=== PATIENT | female | born 1950 | race Caucasian/White ===

== ENCOUNTER 2017-11-25 09:15 | Outpatient (CLI) | payer OTHER, SELFPAY ==
[2017-11-25 11:14] LABS: Abs Immature Grans 0.01 k/cumm (0.0-0.09); Absolute Basophil Count 0.01 k/cumm (0.0-0.2); Absolute Eosinophil Count 0.23 k/cumm (0.0-0.7); Absolute Lymphocyte Count 1.22 k/cumm (1.2-3.4); Absolute Monocyte Count 0.61 k/cumm (0.11-0.7); Absolute Neutrophil Count 4.36 k/cumm (1.2-6.7); Basophils % 0.2; Eosinophils % 3.6; HCT 38.5 % (36.0-46.0); HGB 12.4 g/dL (12.0-15.5); Immature Grans % 0.2; Lymphocytes % 18.9; Mean Corp. HGB Concentration 32.2 g/dL (32.0-36.0); Mean Corpuscular Hemoglobin 31.6 pg (27.0-33.0); Mean Platelet Volume 10.9 fL (8.0-11.0); Monocytes % 9.5; Neutrophils % 67.6; Platelet Count 141 x1000/uL (130-400); RBC 3.93 m/cumm (4.00-5.20); RBC Distribution Width 12.8 % (11.7-14.6); White Blood Cell Count 6.44 k/cumm (4.4-10.8)
[2017-11-25 11:34] LABS: TSH (W/Ref FT4) 3.12 uIU/mL (0.358-3.74)
== END 2017-11-25 09:35 ==
LOC: LBO 09:16 → LOS 10:56
PROVIDERS: PCP Nurse Practitioner Family; Visit Provider Nurse Practitioner Family
DX: D69.6 Thrombocytopenia, unspecified (principal)
CPT/HCPCS: 36415; 84443; 85025

== ENCOUNTER → 2017-11-29 09:16 | Outpatient (BNVA) | payer OTHER, SELFPAY | PROVIDERS: PCP Nurse Practitioner Family; Visit Provider Psychiatry & Neurology Neurology | DX: G40.309 Generalized idiopathic epilepsy and epileptic syndromes, not intractable, without status epilepticus (principal) | CPT/HCPCS: 99213 ==

== ENCOUNTER 2017-12-20 00:49 | Outpatient (CLI) | payer OTHER, SELFPAY ==
--- NOTE | 2017-12-20 09:00 | DI.US_ITS ---
SYMPTOM/DIAGNOSIS: BELLA BENJAMÍN LESION T14.SXXA SOFT TISSUE ULTRASOUND LEFT LOWER EXTREMITY: 12/20/17 The patient reportedly has history of suspected Bella Benjamín lesion with recent ultrasound of 10/13/2017 showing a large fluid collection in the lateral aspect of the thigh. On today's examination, there is interval development of an approximately 10 x 20 cm in diameter heterogeneous region of moderate echogenicity with suspected internal vascular flow on Doppler evaluation. The findings would be atypical for hematoma. The possibility of underlying sarcoma or other soft tissue neoplasm not excluded. CONCLUSION: Interval development of appearance of soft tissue with heterogeneous appearance at site of previously suspected Bella Benjamín lesion with marked interval change in appearance from 10/13/17. Neoplastic disease not excluded. MRI requested for correlation including pre and post contrast imaging of this area.
== END 2017-12-20 01:09 ==
PROVIDERS: PCP Nurse Practitioner Family; Visit Provider Nurse Practitioner Family
DX: S70.12XD Contusion of left thigh, subsequent encounter; T14.8XXD Other injury of unspecified body region, subsequent encounter; R22.42 Localized swelling, mass and lump, left lower limb
CPT/HCPCS: 76881

== ENCOUNTER 2017-12-28 01:01 | Outpatient (CLI) | payer OTHER, SELFPAY ==
--- NOTE | 2017-12-28 07:58 | DI.MRI_ITS ---
SYMPTOMS/DIAGNOSIS: FURTHER EVALUATION OF SITE OF BELLA-BENJAMÍN LESION MRI OF THE LEFT THIGH: Pre and post contrast. Comparison ultrasound is 12/20/17. There is a well- defined crescentic collection extending along the superficial fascia overlying the posterolateral musculature of the left thigh. The collection measures 17 cm in length x 2.4 cm transverse x 7 cm AP. On the T1 weighted images, the collection is hypointense with areas of T2 intensity interlaced more inferiorly consistent with fat. On the T2 weighted images, the collection is predominantly hyperintense with fat signal material at the inferior aspect. The underlying musculature of the thigh is normal in signal and size. There is normal marrow signal. No evidence of an occult fracture is seen. Following contrast administration, there is thin enhancement of the wall of the fluid collection. IMPRESSION: 1. A 17 cm complex fluid collection deep to the subcutaneous tissues, but superficial to the underlying fascia. The collection is most consistent with a complex hematoma with some fat products internally. The findings are consistent with a Bella-Benjamín effusion. 2. No evidence of underlying muscle or osseous abnormality.
[2017-12-28] MEDS: Gadoterate meglumine 20 ML VIAL 9 ML IVP (09:33)
== END 2017-12-28 01:21 ==
PROVIDERS: PCP Nurse Practitioner Family; Visit Provider Nurse Practitioner Family
DX: S70.12XD Contusion of left thigh, subsequent encounter (principal)
CPT/HCPCS: 73720

== ENCOUNTER 2017-12-29 09:35 | Outpatient (CLI) | payer OTHER, SELFPAY ==
--- NOTE | 2017-12-29 09:21 | DI.RAD_ITS ---
SYMPTOM/DIAGNOSIS: F/U S/P REVISION OF RT DEN RIGHT HIP: Comparison is made with 04/16/16. There are again seen post surgical changes of a right total hip replacement. The orthopedic hardware shows no evidence of failure. The bones are intact and normally mineralized. The left hip is unremarkable. The soft tissues have a normal appearance. IMPRESSION: Stable right THR.
== END 2017-12-29 09:55 ==
PROVIDERS: Visit Provider Orthopaedic Surgery
DX: Z96.641 Presence of right artificial hip joint (principal); Z47.1 Aftercare following joint replacement surgery
CPT/HCPCS: 99213; 73502

== ENCOUNTER 2018-01-03 00:23 | Outpatient (CLI) | payer OTHER, SELFPAY ==
--- NOTE | 2018-01-03 08:45 | DI.MAMMO_ITS ---
SYMPTOM/DIAGNOSIS: SCREENING, Z12.31 MAMMOGRAMS: Mammograms were interpreted according to the usual protocol including computer analysis with CAD system, tomosynthesis and C view imaging. The breasts are of moderate density with fairly symmetrical distribution of fibroglandular tissue. No dominant mass or clumped microcalcification is identified in either breast. Biopsy clip is noted in the central portion of the left breast. Current examination is compared with previous examinations including 12/2016 and there has been no gross interval change in appearance in comparison with the previous studies. CONCLUSION: No specific evidence of malignancy at this time. Routine screening examinations are suggested at yearly intervals in this age group according to the ACS/ACR guidelines. Category 1. Breast density, category B. MQSA ASSESSMENT OF FINDINGS: Negative. Category 1. Patient will receive a letter notifying them of these results. BI-RADS category B. There are scattered areas of fibroglandular density.
== END 2018-01-03 00:43 ==
PROVIDERS: PCP Nurse Practitioner Family; Visit Provider Nurse Practitioner Family
DX: Z12.31 Encounter for screening mammogram for malignant neoplasm of breast (principal)
CPT/HCPCS: 77063; 77067

== ENCOUNTER 2018-09-30 02:14 | Outpatient (CLI) | payer OTHER, SELFPAY ==
[2018-09-29 13:55] LABS: HCT 39.4 % (36.0-46.0); HGB 12.9 g/dL (12.0-15.5); Mean Corp. HGB Concentration 32.7 g/dL (32.0-36.0); Mean Corpuscular Hemoglobin 31.5 pg (27.0-33.0); Mean Corpuscular Volume 96.3 fL (80-95); Mean Platelet Volume 10.3 fL (8.0-11.0); Platelet Count 133 x1000/uL (130-400); RBC 4.09 m/cumm (4.00-5.20); RBC Distribution Width 12.5 % (11.7-14.6); White Blood Cell Count 5.22 k/cumm (4.4-10.8)
[2018-09-29 14:05] LABS: Hemoglobin A1C 5.8 % (4.5-6.2)
[2018-09-29 16:15] LABS: Anion Gap 9.2 mmol/L (3-11); BUN 21 mg/dL (7-18); CO2 28.8 mmol/L (21.0-32.0); Calcium 9.6 mg/dL (8.5-10.1); Chloride 108 mmol/L (98-107); Estimated GFR 44.68 (mL/min/1.73m2); Glucose 101 mg/dL (70-100); Potassium 4.7 mmol/L (3.5-5.1); Sodium 146 mmol/L (136-145)
== END 2018-09-30 02:34 ==
PROVIDERS: PCP Nurse Practitioner Family; Visit Provider Nurse Practitioner Family
DX: I25.10 Atherosclerotic heart disease of native coronary artery without angina pectoris (principal); N18.9 Chronic kidney disease, unspecified; R73.09 Other abnormal glucose
CPT/HCPCS: 36415; 80048; 85027; 83036

== ENCOUNTER → 2018-11-28 08:19 | Outpatient (BNVA) | payer OTHER, SELFPAY | PROVIDERS: PCP Nurse Practitioner Family; Visit Provider Psychiatry & Neurology Neurology | DX: G40.309 Generalized idiopathic epilepsy and epileptic syndromes, not intractable, without status epilepticus (principal) | CPT/HCPCS: 99213 ==

== ENCOUNTER 2019-03-28 08:59 | Emergency (ER) | payer OTHER, SELFPAY ==
[2019-03-28 09:03] VITALS: BP 125/66; PULSE 79; RESP 18; TEMP 37.2; O2SAT 96
--- NOTE | 2019-03-28 09:16 | W.ED.GENAD ---
Discharge Plan Disposition Patient Disposition: HOME Condition: Stable Discharge Details Chief Complaint: Orthopedic Clinical Impression: Left ankle sprain Primary Care Provider: Lorelei Ferguson ED Provider: Gonzales Denise Home Meds and New Rx's Prescriptions: Continued multivitamin [Daily Multi-Vitamin] tablet 1 tab PO DAILY RF: 0 loratadine 10 mg capsule 10 mg PO DAILY RF: 0 Shingrix (PF) 50 mcg/0.5 mL suspension for reconstitution 0.5 ml IM ONCE Qty: 1 RF: 0 aspirin [Aspir-81] 81 MG tablet,delayed release (DR/EC) 81 mg PO HS RF: 0 atorvastatin 40 mg tablet 40 mg PO DAILY Qty: 90 RF: 4 bisoprolol fumarate 5 mg tablet 5 mg PO DAILY Qty: 90 RF: 4 lamotrigine 100 mg tablet 100 mg PO BID Qty: 180 RF: 4 lisinopril 2.5 mg tablet 2.5 mg PO DAILY Qty: 90 RF: 4 sertraline 100 mg tablet 100 mg PO DAILY Qty: 90 RF: 4 omeprazole 20 mg capsule,delayed release(DR/EC) 20 mg PO DAILY Qty: 90 RF: 4 Discharge Instructions Instructions: Ankle Sprain (ED) Additional Instructions: Elevate to reduce pain and swelling. Apply ice. May remove walking boot for bedtime, while at rest, for bathing. Follow-up with regular doctor if not improving in 1 week's time. Continue regular medications. Medical Decision Making 69-year-old female who fell while entering her home yesterday afternoon. She had forced deviation of the left ankle. She did not injure herself in any other way. Her exam is concerning for underlying sprain versus bony injury. Ice was placed and she was referred for x-rays including left hip, tib-fib, and ankle. No acute bony injury appreciated. Consistent with strain, soft tissue edema. Placed in walking boot, instructed on conservative management at home and expected course of resolution. She is stable for discharge home. HPI General Mode of arrival: wheelchair. Date/Time Provider Initiated Documentation: 03/28/19 09:01. Limitations to Documentation: no limitations. Information obtained by: patient and family. History of Present Illness 69 year old F presents to the emergency department with the chief complaint of Left ankle pain and swelling, injury yesterday, described as moderate, Quality is described as dull, and is localized to the left and lower extremity. Patient reports no radiation. Patient started experiencing this hour(s) and it has been constant. Rest improves symptom(s), Movement worsens symptoms . Patient notes no other symptoms.. Patient did receive the following treatments prior to arrival, other (Tylenol) Related Data Home Medications Medication Instructions Recorded Confirmed aspirin [Aspir-81] 81 mg PO HS tab 02/01/15 03/28/19 loratadine 10 mg capsule 10 mg PO DAILY 11/24/17 03/28/19 multivitamin 1 tab PO DAILY 11/24/17 03/28/19 varicella-zoster gE-AS01B (PF) 50 0.5 ml IM ONCE #1 each 10/06/18 03/28/19 mcg/0.5 mL IM susp, kit atorvastatin 40 mg tablet 40 mg PO DAILY #90 tab 12/14/18 03/28/19 bisoprolol fumarate 5 mg tablet 5 mg PO DAILY #90 tab 12/14/18 03/28/19 lamotrigine 100 mg tablet 100 mg PO BID #180 tab 12/14/18 03/28/19 lisinopril 2.5 mg tablet 2.5 mg PO DAILY #90 tab 12/14/18 03/28/19 omeprazole 20 mg capsule,delayed 20 mg PO DAILY #90 cap 12/14/18 03/28/19 release sertraline 100 mg tablet 100 mg PO DAILY #90 tab 12/14/18 03/28/19 Previous Rx's Medication Instructions Recorded varicella-zoster gE-AS01B (PF) 50 0.5 ml IM ONCE #1 each 10/06/18 mcg/0.5 mL IM susp, kit atorvastatin 40 mg tablet 40 mg PO DAILY #90 tab 12/14/18 bisoprolol fumarate 5 mg tablet 5 mg PO DAILY #90 tab 12/14/18 lamotrigine 100 mg tablet 100 mg PO BID #180 tab 12/14/18 lisinopril 2.5 mg tablet 2.5 mg PO DAILY #90 tab 12/14/18 omeprazole 20 mg capsule,delayed 20 mg PO DAILY #90 cap 12/14/18 release sertraline 100 mg tablet 100 mg PO DAILY #90 tab 12/14/18 Allergies Allergy/AdvReac Type Severity Reaction Status Date / Time Penicillins Allergy Severe Unverified 03/28/19 09:08 Sulfa (Sulfonamide Allergy Severe Unverified 03/28/19 09:08 Antibiotics) IODINE DYES Allergy Severe Uncoded 03/28/19 09:08 General Stated Complaint: Orthopedic MARION: 4 Review of Systems Narrative: Denies numbness or tingling. No other injury. Improve minimally with Tylenol. She has been gently able to weight-bear but it causes pain. 6 systems reviewed and otherwise negative [facility] Medical History Allergic rhinitis (Chronic) Atopic dermatitis (Inactive) Chronic kidney disease (CKD) (Chronic) Coronary artery disease, non-occlusive (Chronic) Atretic LAD. 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 Prediabetes (Chronic) Tubular adenoma of colon (Chronic) Colonoscopy q5yrs; due in 2020 Surgical History History of arthroplasty of right shoulder (Acute) History of revision of total replacement of right hip joint (Acute 01/03/16) S/P appendectomy (Acute) S/P colonoscopy (Acute 11/18/15) S/P ear surgery (Acute 01/12/13) Left middle ear paraganglioma removal at [facility] [place] S/P laparoscopic hysterectomy (Acute ~1988) S/P left oophorectomy (Acute ~1988) S/P right oophorectomy (Acute ~1969) Status post total hip replacement, right (Acute 12/30/15) Social History (Updated 11/28/18 @ 08:32 by JOYCE Abraham Smoking/Tobacco Use Status: Former Tobacco Use Quit Date: 03/22/89 Pack-years: 23 Alcohol Intake: current Alcohol Intake frequency: a few times a month Drug use: Never Substance use type: does not use Adopted: No Household members: other Details: 2 current occupation: HOUSEWIFE Pets and animals: No What type of physical activity do you participate in: none Shawanda/Protestant: Evangelical Special shawanda needs: No Do you feel safe at home: Yes Do you feel safe in your relationship?: Yes Additional Social history: does not drive Female Reproductive History Menstrual Menopause type: surgical History History 5 Para 5 Hx # Term Pregnancies Multiple births Hx # Pregnancies Ectopic pregnancies AB induced Hx Number of Living Children 5 AB spontaneous Exam Narrative Exam Narrative: GEN: awake, alert, oriented 3. Pleasant, well groomed, interactive. HEAD: Normocephalic, atraumatic ENT: Mucous membranes moist, oropharynx unremarkable, External ear exam unremarkable EYES: PERRL, EOMI NECK: Full ROM, no CONSTANTINO, no menigismus CHEST/RESP: Nontender, clear to auscultation bilateral, no wheeze/rhonchi/rales CARDIOVASCULAR: RRR, no murmur, rub ravi. 2+ Rad pulse bilateral EXT: Intact bilateral ROM, the left lower extremity has generalized swelling around the bimalleolar area with anterolateral ecchymosis. The left hip is minimally tender to palpation. No pain with internal and external rotation. Sensation is intact throughout. Neuro: Grossly normal neurologic exam, conversant, interactive. Psych: Speech fluent, thoughts congruent, affect normal Course Vital Signs Vital signs: Vital Signs Temperature 37.2 C 03/28/19 09:03 Pulse 79 03/28/19 09:03 Respiratory Rate 18 03/28/19 09:03 Blood Pressure 125/66 03/28/19 09:03 Pulse Oximetry 96 03/28/19 09:03 Temperature 37.2 C 03/28/19 09:03 Temperature Source Temporal Artery Scan 03/28/19 09:03 Pulse 79 03/28/19 09:03 Respiratory Rate 18 03/28/19 09:03 Respiratory Effort Non-Labored 03/28/19 09:07 Blood Pressure 125/66 03/28/19 09:03 Blood Pressure Position Supine 03/28/19 09:03 Pulse Oximetry 96 03/28/19 09:03 Oxygen Delivery Method Room Air 03/28/19 09:03 Oxygen Flow Rate 0 03/28/19 09:03 Pain Level 10 03/28/19 09:09
--- NOTE | 2019-03-28 09:23 | DI.RAD_ITS ---
EXAM: XR ANKLE LT COMPLETE INDICATION: fall, Lat > medial pain. COMPARISON: No exams were available for comparison TECHNIQUE: 2D digital imaging was performed. FINDINGS: There is marked soft tissue swelling around the malleoli. No fracture or ankle mortise widening is s een. No talar dome defect is identified. IMPRESSION: Soft tissue swelling.
--- NOTE | 2019-03-28 09:26 | DI.RAD_ITS ---
EXAM: XR TIB/FIB LT INDICATION: distal tibia pain. COMPARISON: XR ANKLE LT COMPLETE from 03/28/2019 TECHNIQUE: 2D digital imaging was performed. FINDINGS: No fracture is identified. The knee and ankle are intact as visualized. IMPRESSION: No acute abnormality.
--- NOTE | 2019-03-28 09:30 | DI.RAD_ITS ---
EXAM: XR HIP LT COMPLETE AP PELVIS INDICATION: L hip pain after fall. COMPARISON: No exams were available for comparison TECHNIQUE: 2D digital imaging was performed. FINDINGS: There is no evidence of acute fracture or dislocation. A right total hip prosthesis appears unchanged . IMPRESSION: No acute abnormality.
== END 2019-03-28 10:02 | disposition home or self-care (01) ==
LOC: ER 10:01
PROVIDERS: Emergency Provider Emergency Medicine; PCP Nurse Practitioner Family
DX: S93.402A Sprain of unspecified ligament of left ankle, initial encounter (principal); W19.XXXA Unspecified fall, initial encounter; X50.9XXA Other and unspecified overexertion or strenuous movements or postures, initial encounter; I12.9 Hypertensive chronic kidney disease with stage 1 through stage 4 chronic kidney disease, or unspecified chronic kidney disease; N18.9 Chronic kidney disease, unspecified
CPT/HCPCS: 29515; 99284; 73502; 73590; 73610; L4361

== ENCOUNTER 2019-09-25 12:20 | Outpatient (REF) | payer OTHER, SELFPAY ==
[2019-09-25 13:12] LABS: COMMENT (LAB VIEW ONLY) 230.38 mg/dL
[2019-09-25 14:35] LABS: Anion Gap 8.1 mmol/L (3-11); BUN 20 mg/dL (7-18); CO2 28.9 mmol/L (21.0-32.0); CREATININE 1.07 mg/dL (0.55-1.02); Calcium 9.5 mg/dL (8.5-10.1); Calculated LDL 55 mg/dL (<100); Chloride 106 mmol/L (98-107); Cholesterol 115 mg/dL (<200); Estimated GFR 50.84 (mL/min/1.73m2); Glucose 105 mg/dL (74-106); HDL Cholesterol 46 mg/dL (40-60); Potassium 4.4 mmol/L (3.5-5.1); Sodium 143 mmol/L (136-145); Triglyceride 74 mg/dL (<150)
[2019-09-25 14:37] LABS: Hemoglobin A1C 5.4 % (3.8-5.6)
== END 2019-09-25 12:40 ==
LOC: LBN 12:20
PROVIDERS: PCP Nurse Practitioner Family; Visit Provider Nurse Practitioner Family
DX: N18.9 Chronic kidney disease, unspecified (principal); I25.10 Atherosclerotic heart disease of native coronary artery without angina pectoris; R73.03 Prediabetes
CPT/HCPCS: 80048; 80061; 82043; 82570; 83036

== ENCOUNTER → 2019-10-20 12:53 | Outpatient (BNVA) | payer OTHER, SELFPAY | PROVIDERS: PCP Nurse Practitioner Family; Referring Provider Nurse Practitioner Family; Visit Provider Internal Medicine Cardiovascular Disease | DX: I25.10 Atherosclerotic heart disease of native coronary artery without angina pectoris; E78.5 Hyperlipidemia, unspecified; I12.9 Hypertensive chronic kidney disease with stage 1 through stage 4 chronic kidney disease, or unspecified chronic kidney disease; N18.9 Chronic kidney disease, unspecified | CPT/HCPCS: 99203; 99214 ==

== ENCOUNTER 2019-11-15 01:08 | Outpatient (CLI) | payer OTHER, SELFPAY ==
--- NOTE | 2019-11-15 | DI.MAMMO_ITS ---
EXAM: MG MAMMO SCREENING CLINICAL HISTORY: SCREENING, Z12.39 TECHNIQUE: Mammograms were interpreted according to the usual protocol including computer analysis w [place] CAD system, tomosynthesis and C-view imaging. COMPARISON: FINDINGS: The breasts are of moderate density with fairly symmetrical distribution of fibroglandular tissue. N o dominant mass or clumped microcalcification is identified in either breast. The current examinatio n is compared with prior examinations including December 2017 and there has been no gross interval romeo nge in appearance in comparison with the previous studies. IMPRESSION: No specific evidence of malignancy at this time. Routine screening examinations are suggested at yea rly intervals in this age group according to the ACS ACR guidelines. Category: BI-RADS Cat 1 - Negative Breast Density - Category B - Scattered areas of fibroglandular density
--- NOTE | 2019-11-15 07:45 | DI.DEXA_ITS ---
EXAM: XR DEXA BONE DENSITY W/WO FARSHAD CLINICAL HISTORY: Osteopenia,m85.80 TECHNIQUE: COMPARISON: CR XR HIP LT COMPLETE AP PELVIS from 03/28/2019 MG MG MAMMO SCREENING from 11/15/2019 FINDINGS: DEXA scan was performed according to the usual protocol. Findings for left hip scanning are T-score -1.5 with left femoral neck T-score -2.7. Prior scan of May 2015 left hip T-score -1 point. Lumbar spine scanning shows T-score -1.5, prior study of 2015 showed T-score -1.2. Left forearm scanning shows T-score -1.1, prior study showed T-score -1.0. IMPRESSION: Findings consistent with osteoporosis according to the WHO criteria. Mild anterior wedging of upper thoracic vertebral bodies noted on the lateral vertebral scanogram. RADIATION DOSE DELIVERED: Total DLP
== END 2019-11-15 01:28 ==
PROVIDERS: PCP Nurse Practitioner Family; Visit Provider Nurse Practitioner Family
DX: M85.832 Other specified disorders of bone density and structure, left forearm (principal); M85.88 Other specified disorders of bone density and structure, other site; Z12.31 Encounter for screening mammogram for malignant neoplasm of breast
CPT/HCPCS: 77063; 77067; 77080

== ENCOUNTER → 2019-11-28 10:14 | Outpatient (BNVA) | payer OTHER, SELFPAY | PROVIDERS: PCP Nurse Practitioner Family; Visit Provider Psychiatry & Neurology Neurology | DX: G40.309 Generalized idiopathic epilepsy and epileptic syndromes, not intractable, without status epilepticus (principal); R41.3 Other amnesia; I25.2 Old myocardial infarction; G47.33 Obstructive sleep apnea (adult) (pediatric); I12.9 Hypertensive chronic kidney disease with stage 1 through stage 4 chronic kidney disease, or unspecified chronic kidney disease; N18.9 Chronic kidney disease, unspecified | CPT/HCPCS: 99214 ==

== ENCOUNTER 2019-12-07 04:14 | Outpatient (CLI) | payer OTHER, SELFPAY ==
[2019-12-07 08:23] LABS: Vitamin D 25 Total 40.9 ng/ml (30-100)
== END 2019-12-07 04:34 ==
PROVIDERS: PCP Nurse Practitioner Family; Visit Provider Nurse Practitioner Family
DX: M81.0 Age-related osteoporosis without current pathological fracture (principal)
CPT/HCPCS: 36415; 82306

== ENCOUNTER → 2020-07-19 12:27 | Outpatient (BNVA) | payer OTHER, SELFPAY | PROVIDERS: PCP Nurse Practitioner Family; Referring Provider Nurse Practitioner Family; Visit Provider Internal Medicine Cardiovascular Disease | DX: I25.10 Atherosclerotic heart disease of native coronary artery without angina pectoris (principal); I10 Essential (primary) hypertension; E78.5 Hyperlipidemia, unspecified | CPT/HCPCS: 99212; 99213 ==

== ENCOUNTER 2020-10-11 03:07 | Outpatient (CLI) | payer OTHER, SELFPAY ==
[2020-10-11 09:32] LABS: Anion Gap 10.1 mmol/L (3-11); BUN 18 mg/dL (7-18); CO2 28.9 mmol/L (21.0-32.0); CREATININE 1.2 mg/dL (0.55-1.02); Calcium 9.3 mg/dL (8.5-10.1); Calculated LDL 54 mg/dL (<100); Chloride 108 mmol/L (98-107); Cholesterol 118 mg/dL (<200); Estimated GFR 44.41 (mL/min/1.73m2); Glucose 98 mg/dL (74-106); HDL Cholesterol 49 mg/dL (40-60); Potassium 4.7 mmol/L (3.5-5.1); Sodium 147 mmol/L (136-145); Triglyceride 76 mg/dL (<150)
== END 2020-10-11 03:08 | disposition home or self-care (01) ==
LOC: LBO 03:08
PROVIDERS: PCP Nurse Practitioner Family; Visit Provider Nurse Practitioner Family
DX: I25.10 Atherosclerotic heart disease of native coronary artery without angina pectoris (principal)
CPT/HCPCS: 36415; 80048; 80061

== ENCOUNTER → 2020-11-26 10:46 | Outpatient (BNVA) | payer OTHER, SELFPAY | PROVIDERS: PCP Nurse Practitioner Family; Referring Provider Nurse Practitioner Family; Visit Provider Psychiatry & Neurology Neurology | DX: G40.309 Generalized idiopathic epilepsy and epileptic syndromes, not intractable, without status epilepticus (principal); R41.3 Other amnesia | CPT/HCPCS: 99213 ==

== ENCOUNTER → 2021-07-04 11:18 | Outpatient (BNVA) | payer MEDICARE, SELFPAY | PROVIDERS: PCP Nurse Practitioner Family; Referring Provider Nurse Practitioner Family; Visit Provider Physical Therapy Assistant | DX: Z12.11 Encounter for screening for malignant neoplasm of colon (principal) ==

== ENCOUNTER 2021-07-18 09:18 | Day surgery (SDC) | payer MEDICARE, SELFPAY ==
--- NOTE | 2021-07-17 14:19 | W.COLOREPORT ---
Colonoscopy Report Date of procedure: 07/18/21 Pre-op diagnosis general: Adenomatous polyps Post-op diagnosis procedure note: other (polyps x2 and diverticula (minor) ) Surgeon: Dee Min Anesthesia Type: General:No Airway Estimated blood loss (mL): 1 Pathology: other Complications: None Disposition: same day Prep: Miralax/Dulcolax Retraction Time: 10 Procedure Description: After informed consent was obtained the patient was taken to the procedure room and placed in a left decubitous position. Monitors were applied and a time out was done. The patients name, date of , procedure, allergies to medications and metal in their body was reviewed. The patient was then sedated. Once sedated and comfortable a rectal exam was done. External exam was normal. Internal exam revealed a normal sphincter tone and no palpable masses. The scope was then introduced and retrofelexed. Grade I internal hemorrhoids were identified. The scope was then advanced to the cecum withoutdifficulty. The TI and appendiceal orifice were identified. The prep was BB PS 3 in all segments for a total of 9.. The scope was then slowly retracted over 10mins. she has x2 small, flat, 5 mm polyps. Both were removed with a cold biting forceps. One was in the cecum and the other was at 40 cm. All specimens are retrieved and no bleeding is noted. She has minor diverticula confined in the sigmoid colon with no signs of active bleeding or infection. There are no AVMs. The mucosa appears pink and healthy with a normal vascular pattern. The scope was removed and the patient was woken up and taken back to Same day surgery in stable condition. The patient tolerated the procedure well and there were no immediate complications. Follow up: The patient should follow up in 7 years unless they develop changes in bowel habits or other new gastrointestinal complaints. Depending on pathology, this is most likely her last colonoscopy.
--- NOTE | 2021-07-17 14:20 | PDOC.DSDIS_ITS ---
Discharge Plan Disposition Patient Disposition: HOME Condition: Good Discharge Details Reason For Visit: Colon scope Attending Provider: Dee Min Primary Care Provider: Lorelei Ferguson Meds and New Rx's Prescriptions: Continued multivitamin [Daily Multi-Vitamin] tablet 1 tab PO DAILY 0RF lamotrigine 100 mg tablet 100 mg PO BID Qty: 180 3RF calcium carbonate [Calcium 600] 600 mg calcium (1,500 mg) tablet 600 mg PO DAILY 0RF aspirin 81 mg tablet,delayed release (DR/EC) 81 mg PO DAILY 0RF mometasone 0.1 % ointment 1 applic topical .qod Qty: 15 1RF Rx Instructions: apply to both ear canals with fingertip every other day atorvastatin [Lipitor] 40 mg tablet 40 mg PO DAILY Qty: 90 4RF alendronate [Fosamax] 70 mg tablet 70 mg PO QWEEK Qty: 15 4RF Rx Instructions: Take 1 tablet once a week with water 30-60min before other meds or food, stay upright for >30 min after bisoprolol fumarate 5 mg tablet 5 mg PO DAILY Qty: 90 4RF lisinopril 2.5 mg tablet 2.5 mg PO DAILY Qty: 90 4RF omeprazole 20 mg tablet,delayed release (DR/EC) 20 mg PO DAILY Qty: 90 4RF Discontinued polyethylene glycol 3350 17 gram/dose powder 238 g PO ONCE Qty: 238 0RF Rx Instructions: take per colonoscopy instructions bisacodyl [Dulcolax (bisacodyl)] 5 mg tablet,delayed release (DR/EC) 5 mg PO ONCE Qty: 4 0RF Rx Instructions: take per colonoscopy instructions Discharge Instructions Additional Instructions: DSU Colonoscopy Post- Op Instructions Instructions for Everyone who is given Anesthesia: For your safety, please do the following for the next twenty-four (24) hours: *Do Not operate a motor vehicle (car, truck, motorcycle, etc.) *Do Not drink alcoholic beverages or use any recreational drugs for the first 24 hours or while taking pain medications. The medications in your body may have a reaction that can be dangerous. *Do Not make any important decisions or sign any important papers. Findings: polyps x2 and minor diverticula Follow up: repeat in 7 yrs if still healthy for anesthesia. 1. No lifting over 20 pounds or strenuous activity for the first 24 hours after your procedure. After 24 hours there are no restrictions on your activity but you may feel fatigued for a few days. 2. After you arrive home you may have a light meal and return to your normal diet as you can tolerate it without feeling sick to your stomach. 3. You may have a bloated, gaseous feeling in your belly (abdomen) after a colonoscopy. Passing gas and belching will help. Walking or lying down on your l eft side with your knees flexed may relieve the discomfort. Call the office at [phone] (Office) or [phone] (Hospital) right away if you notice any of the following: a.Vomiting of blood or ?coffee ground stools?. b.Rectal bleeding 1Tbsp, blood clots or continuous bleeding. c.Severe belly (abdominal) pain. d.A hard distended belly (abdomen) and an inability to pass gas. 4. Please don?t expect to have a normal BM (bowel movement) for 2-3 days after your procedure. 5. If there are questions regarding the findings of your procedure, please contact your doctor 6. If you are unable to contact your doctor with a problem, contact the hospital at [phone]. 7. Continue all your regular medications unless directed otherwise. I understand the above instructions and have no questions. Signature of Patient or Adult Escort Name of Responsible Adult Escort Signature of Nurse Date/Time Activity:: See above Diet:: See above Discharge Orders Discharge Orders: Discharge Order (Routine); Ordered 07/17/21 Ordered By: Dee Min
--- NOTE | 2021-07-18 09:39 | W.ANESPRE ---
General Info Date of Service Date Performed: 07/18/21 Height: 5 ft 2 in Weight: 83.461 kg Body Mass Index (BMI): 33.6 Surgical Procedure: Operation Date: 07/18/21 09:50 Proposed Procedure Side Surgeon lazaro Min, Meds Allergies and Home Medications Allergies Allergy/AdvReac Type Severity Reaction Status Date / Time Penicillins Allergy Severe Anaphylaxis Verified 07/18/21 09:41 Sulfa (Sulfonamide Allergy Severe Anaphylaxis Verified 07/18/21 09:41 Antibiotics) IODINE DYES Allergy Severe Anaphylaxis Uncoded 07/18/21 09:35 Home Medication Medication Instructions Recorded multivitamin (Daily Multi-Vitamin) 1 tab PO DAILY 11/24/17 calcium carbonate 600 mg calcium 600 mg PO DAILY 07/19/20 (1,500 mg) tablet (Calcium) lamotrigine 100 mg tablet 100 mg PO BID #180 tab 10/25/20 aspirin 81 mg tablet,delayed 81 mg PO DAILY 12/03/20 release alendronate 70 mg tablet (Fosamax) 70 mg PO QWEEK #15 tab 03/12/21 atorvastatin 40 mg tablet (Lipitor) 40 mg PO DAILY #90 tab 03/12/21 bisoprolol fumarate 5 mg tablet 5 mg PO DAILY #90 tab 03/12/21 lisinopril 2.5 mg tablet 2.5 mg PO DAILY #90 tab 03/12/21 mometasone 0.1 % topical ointment 1 applic TOPICAL .qod #15 g 05/29/21 omeprazole 20 mg tablet,delayed 20 mg PO DAILY #90 tab 06/26/21 release Current Visit Medications: Current Medications Generic Name Dose Route Start Last Admin Trade Name Jabier PRN Reason Stop Dose Admin Hyoscyamine Sulfate 0.125 mg 07/18/21 06:00 Hyoscyamine 0.125 Mg Sl/Oral/Chew SL 07/18/21 16:00 DIRECTED PRN Ringer's Solution 1,000 mls @ 80 mls/hr 07/18/21 06:00 IV 07/19/21 23:59 INFUSION BABAR IV Miscellaneous Supplies 1 each 07/18/21 06:00 Iv Access IV 07/19/21 23:59 DIRECTED BABAR Ondansetron HCl 4 mg 07/18/21 06:00 Ondansetron 4 Mg/2 Ml Vial IVP 07/18/21 16:00 Q4H PRN PRN Nausea / Vomiting Sodium Chloride 0 ml 07/18/21 06:00 Normal Saline Flush 10 Ml Syr IV 07/19/21 23:59 PRN PRN Sodium Chloride 0 ml 07/18/21 06:00 Normal Saline 10 Ml Vial IJ 07/19/21 23:59 DIRECTED PRN Sterile Water 0 ml 07/18/21 06:00 Water,Injection,Sterile 10 Ml Vial IJ 07/19/21 23:59 DIRECTED PRN PFSH Active Problems Active Problems: Problem Status Onset Code Chronic kidney disease (CKD) N18.9 Coronary artery disease, non-occlusive I25.10 Hyperlipidemia E78.5 Obstructive sleep apnea G47.33 Tubular adenoma of colon D12.6 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 Allergic rhinitis J30.9 GERD (gastroesophageal reflux disease) K21.9 Depressive disorder F32.9 Osteoporosis M81.0 Memory loss R41.3 Chronic suppurative otitis media of left ear H66.3X2 Chronic eczematoid otitis externa of both ears H60.8X3 Chronic bacterial otitis externa of left ear H60.392 Sensorineural hearing loss, bilateral H90.3 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 Medical History Medical History Former cigarette smoker 23pack-yr hx Migraine headache without aura (02/01/15) [place] lesion (~09/2017) To left lateral thigh Non-ischemic cardiomyopathy NSTEMI (non-ST elevated myocardial infarction) (~2011) 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Prediabetes Surgical History Surgical History History of arthroplasty of right shoulder History of left mastoidectomy With paraganglioma excision, 2012, at [facility] [place] History of revision of total replacement of right hip joint (01/03/16) History of tonsillectomy and adenoidectomy S/P appendectomy S/P colonoscopy (11/18/15) S/P laparoscopic hysterectomy (~1988) S/P left oophorectomy (~1988) S/P right oophorectomy (~1969) Status post total hip replacement, 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) Tobacco Smoking/Tobacco Use Status: Former Tobacco Use Passive smoking exposure: Yes Alcohol Alcohol Intake: never Substance Use Substance use: Never Prental History History 5 Para 5 Hx # Term Pregnancies Multiple births Hx # Pregnancies Ectopic pregnancies AB induced Hx Number of Living Children 5 AB spontaneous Vital Signs and Lab Results Lab Results Blood Type / Crossmatch: No Data to Display Complete Blood Count: No Data to Display Complete Metabolic Panel: No Data to Display Liver Function Panel: No Data to Display Coagulation Panel: No Data to Display Cardiac Panel: No Data to Display Arterial Blood Gas: No Data to Display Venous Blood Gas: No Data to Display Pancreas Panel: No Data to Display Thyroid Panel: No Data to Display Infectious Disease: No Data to Display Blood Cultures: No Data to Display Toxicology Panel: No Data to Display Anesthesia Assessment and Plan Anesthesia History Personal History: No History of Anesthesia Complications Family History: No Family History of Anesthesia Complications Exercise Tolerance Exercise Tolerance: Metabolic Equivalents<4 Pertinent Negatives Pertinent Negatives: No Symptoms of GERD Cardiac & Pulmonary Exam Cardiac Exam: Normal S1/S2 Heart Sounds Pulmonary Exam: Clear Bilateral Breath Sounds Implantable Cardiac Device Does patient have a Pacemaker or an ICD?: No Airway Exam Known Difficult Airway: No Mallampati Class: 2 Mouth Opening: Normal (> 3cm) Thyromental Distance: Greater than 3 cm Neck Range of Motion: Full ROM Neck Circumference: Normal Teeth Condition: Removable Dentures/Plates Upper ASA Classification ASA Score: ASA 2 Emergency Case?: No NPO Status NPO Status: NPO Clears >2 hours, Solids >8 hours Anesthesia Plan Resuscitation Status: Full Code Anesthesia Technique: General Anesthesia Airway Planned: Natural Airway Monitors Used: Standard Monitors
[2021-07-18 09:46] VITALS: BP 135/83; PULSE 62; RESP 18; TEMP 36.5; O2SAT 97
[2021-07-18 10:15] VITALS: BMI 33.6
[2021-07-18] MEDS: Lactated Ringers 1,000 ML 80 ML IV (10:20)
--- NOTE | 2021-07-18 10:36 | BOWEL_PTH ---
PATIENT: Dorothy Payne LOC: [facility] U#:[id number] AGE/SX: 71/F ROOM: RE07/18/[address]: Dee Min : 1950 BED: DIS: 07/18/2021 SPEC #: [id number] RECD: 07/18/21 12:45 STATUS: JOHN REQ #: [id number] MANDO: 07/18/21 10:[address]: Dee Min DEPT: Surgical Specimen RECD BY: Mady Naranjo ENTERED: 07/18/21 12:46 SP TYPE: Bowel OTHR DR: Lorelei Ferguson, TRUDY Tissues: 1 - BIOPSY BOWEL 2 - BIOPSY BOWEL Procedures: GROSS AND MICRO LEVEL 4 Comments: [id number]
[2021-07-18 10:55] VITALS: BP 109/61; PULSE 64; RESP 16; TEMP 36.2; O2SAT 98
--- NOTE | 2021-07-18 11:08 | W.ANESPOSTOP ---
Postoperative Evaluation Date, Time and Location Date Performed: 07/18/21 Time Performed: 11:08 Patient Location: Day Surgery Unit Vital Signs Most Recent Imported Vital Signs: Most Recent Vital Signs Temp Pulse Resp BP Pulse Ox 36.2 C L 64 16 109/61 98 07/18/21 10:55 07/18/21 10:55 07/18/21 10:55 07/18/21 10:55 07/18/21 10:55 Pain Score Most Recent Pain Score: Most Recent Pain Score Pain Level 0 07/18/21 10:55 Assessment Mental Status: Awake (Alert & Oriented to Patient Baseline) Airway and Respiratory Function: Patent airway with normal (patient baseline) respiratory exam Cardiovascular Function: Hemodynamically Stable Hydration Status: Adequately Hydrated Nausea & Vomiting: No Nausea or Vomiting Pain: Pt. Denies Any Pain Peripheral Nerve Block: Patient did not receive a nerve block
[2021-07-18 11:29] VITALS: BP 119/61; PULSE 59; RESP 18; TEMP 36.2; O2SAT 98
== END 2021-07-18 11:50 | disposition home or self-care (01) ==
LOC: SUR 09:18
PROVIDERS: PCP Nurse Practitioner Family; Visit Provider Surgery
PROC: 0DJD8ZZ Inspection of Lower Intestinal Tract, Via Natural or Artificial Opening Endoscopic (ICD-10-PCS; CPT 45378; principal; 2021-07-18 09:45)
DX: Z12.11 Encounter for screening for malignant neoplasm of colon (principal); K63.5 Polyp of colon; Z87.891 Personal history of nicotine dependence; R73.03 Prediabetes; K21.9 Gastro-esophageal reflux disease without esophagitis; K63.89 Other specified diseases of intestine
CPT/HCPCS: 45380; 88305

== ENCOUNTER → 2021-11-25 09:26 | Outpatient (BNVA) | payer MEDICARE, SELFPAY | PROVIDERS: PCP Nurse Practitioner Family; Referring Provider Nurse Practitioner Family; Visit Provider Psychiatry & Neurology Neurology | DX: I12.9 Hypertensive chronic kidney disease with stage 1 through stage 4 chronic kidney disease, or unspecified chronic kidney disease (principal); N18.30 Chronic kidney disease, stage 3 unspecified; G47.33 Obstructive sleep apnea (adult) (pediatric); G40.309 Generalized idiopathic epilepsy and epileptic syndromes, not intractable, without status epilepticus; R41.3 Other amnesia; E78.5 Hyperlipidemia, unspecified | CPT/HCPCS: 99214 ==

== ENCOUNTER 2021-12-01 03:40 | Outpatient (CLI) | payer MEDICARE, SELFPAY ==
[2021-12-01 07:16] LABS: Abs Immature Grans 0.02 10^3/uL (0.0-0.06); Absolute Basophil Count 0.01 10^3/uL (0.0-0.2); Absolute Eosinophil Count 0.17 10^3/uL (0.0-0.7); Absolute Lymphocyte Count 1.52 10^3/uL (1.2-3.4); Absolute Monocyte Count 0.54 10^3/uL (0.1-0.8); Absolute Neutrophil Count 4.83 10^3/uL (1.2-6.7); Basophils % 0.1; Eosinophils % 2.4; HCT 39.9 % (36.0-46.0); HGB 13.2 g/dL (11.2-15.7); Immature Grans % 0.3; Lymphocytes % 21.4; MCHC 33.1 % (32.0-36.0); MCV 97 fL (80-95); Monocytes % 7.6; Neutrophils % 68.2; Platelet Count 146 10^3/uL (130-400); RBC 4.12 10^6/uL (3.93-5.22); RDW 12.3 % (11.7-14.6); RDW-SD 43.6 fL; WBC 7.09 10^3/uL (4.4-10.8)
[2021-12-01 08:18] LABS: BUN 19 mg/dL (7-18); CREATININE 1.1 mg/dL (0.55-1.02); Calcium 9.1 mg/dL (8.5-10.1); Chloride 107 mmol/L (98-107); Estimated GFR 53.72 (mL/min/1.73m2); Glucose 99 mg/dL (74-106); Sodium 144 mmol/L (136-145); TSH (W/Ref FT4) 3.69 uIU/mL (0.36-3.74)
[2021-12-01 08:34] LABS: Vitamin B12 498 pg/mL (193-986)
== END 2021-12-01 03:41 | disposition home or self-care (01) ==
LOC: LBO 03:40
PROVIDERS: Psychiatry & Neurology Neurology; PCP Nurse Practitioner Family; Visit Provider Family Medicine
DX: G40.309 Generalized idiopathic epilepsy and epileptic syndromes, not intractable, without status epilepticus (principal); Z00.00 Encounter for general adult medical examination without abnormal findings; R41.3 Other amnesia
CPT/HCPCS: 36415; 80048; 80175; 82607; 84443; 85025

== ENCOUNTER → 2021-12-16 01:33 | Outpatient (CLI) | payer MEDICARE, SELFPAY ==
--- NOTE | 2021-12-16 06:45 | DI.MRI_ITS ---
Exam(s) MR BRAIN WO EXAM: MR BRAIN WO CLINICAL HISTORY: memory loss,R41.3 TECHNIQUE: Multiplanar multisequence MRI of the brain was performed. COMPARISON: MR MRI IAC W/WO CONTRAST from 01/14/2011 FINDINGS: VENTRICLES AND EXTRA AXIAL SPACES: Normal in size and morphology for the patient's age. MIDLINE SHIFT: None. CEREBRAL PARENCHYMA: No focus of restricted diffusion to suggest acute infarct. No space-occupying le dory identified. There are foci of hyperintense signal seen in the white matter on the FLAIR and T2 w eighted images most suggestive of small vessel ischemic disease. HEMORRHAGE: None. BRAINSTEM/CEREBELLUM: Normal. CALVARIUM: Normal. VISUALIZED PARANASAL SINUSES/MASTOIDS:There is a small amount of fluid in the left mastoid air cells. The remaining visualized paranasal sinuses and right mastoid air cells are clear. COUNCIL OF EDWARDS: Normal flow void. PITUITARY GLAND: Unremarkable. OTHER FINDINGS: None. IMPRESSION: 1. Age-appropriate cerebral atrophy and small vessel ischemic disease. 2. No evidence of an acute infarct. DATA REPOSITORY:
== END ==
PROVIDERS: PCP Nurse Practitioner Family; Visit Provider Psychiatry & Neurology Neurology
DX: R41.3 Other amnesia (principal)
CPT/HCPCS: 70551

== ENCOUNTER → 2021-12-16 01:33 | Outpatient (CLI) | payer MEDICARE, SELFPAY ==
--- NOTE | 2021-12-16 09:48 | DI.MAMMO_ITS ---
Exam(s) MAMMO SCREENING EXAM: MAMMO SCREENING CLINICAL HISTORY: screening,Z12.39 TECHNIQUE: Bilateral full field digital CC and MLO mammographic images were obtained with 3D tomosyn thesis and utilizing computer aided detection (CAD). COMPARISON: Available for comparison. FINDINGS: Masses/Architectural Distortion: There is a new soft tissue nodule with associated calcification in t he medial right breast on the CC view. Microcalcifications: No suspicious pleomorphic-type are seen. Skin Thickening/Nipple Retraction: None. IMPRESSION: 1. New soft tissue nodule in the medial right breast on the CC view. 2. This area should be further evaluated with spot compression view. Ultrasound may be indicated at that time. BI-RADS Category 0 - Assessment Incomplete: Need additional imaging evaluation Breast Density - Category B - Scattered areas of fibroglandular density Breast density category C or D implies that the patient has dense breast tissue. Dense breast tissue is very common and is not abnormal but dense breast tissue can make it harder to find cancer on a ma mmogram. Also, dense breast tissue may increase their breast cancer risk. This information about the result of the mammogram report was provided to the patient to raise their awareness. Use this report when you speak with the patient about their risks for breast cancer, which includes their family hist ory. At that time, you may recommend for more screening tests (Ultrasound or MRI) as they might be us eful based on their risk. A negative radiographic report should not delay biopsy if a dominant or clinically suspicious mass is present. Up to ten percent of cancers are not identified on mammography. A negative report may reinforce clinical impression. Adenosis and dense breasts may obscure an underlying neoplasm. False positive reports average 6 to 10%. Patient will receive a letter notifying them of these results.
== END ==
PROVIDERS: PCP Nurse Practitioner Family; Visit Provider Nurse Practitioner Family
DX: Z12.31 Encounter for screening mammogram for malignant neoplasm of breast (principal); R92.8 Other abnormal and inconclusive findings on diagnostic imaging of breast
CPT/HCPCS: 77063; 77067

== ENCOUNTER 2021-12-30 01:47 | Outpatient (CLI) | payer MEDICARE, SELFPAY ==
--- NOTE | 2021-12-30 | DI.US_ITS ---
Exam(s) MG MAMMO SCREEN CALL BACK UNI US BREAST RT LIMITED EXAM: MG MAMMO SCREEN CALL BACK UNI and U/S breast RT limited CLINICAL HISTORY: SOFT TISSUE NODULE RT BREAST. TECHNIQUE: Craniocaudal and mediolateral oblique Full Field Digital Mammography views of the right b reast with Computer Aided Diagnosis followed by Tomosynthesis and right breast ultrasound. COMPARISON: Comparison is made with prior examinations. FINDINGS: Mammography/Tomosynthesis: Masses/Architectural Distortion: Additional views again show a coarse calcification associated with t he soft tissue nodule. This likely reflects a degenerating fibroadenoma. No area of architectural d istortion is seen. Microcalcifictions: No suspicious pleomorphic-type are seen. Skin Thickening/Nipple Retraction: None. Limited right breast US: Echotexture: Normal appearance of the glandular tissue. Shadowing: There is a shadowing echogenic focus at the 12:30 position 5 cm from the nipple in the rig ht breast. This would appear to correspond to the calcifications seen on the mammogram. Cyst: None. Solid lesions: None seen. Ductal dilation: None. IMPRESSION: 1. No definite evidence of malignancy is noted. 2. A six-month follow-up right mammogram is requested for re-evaluation. 3. The findings were discussed with the patient on the date of the examination. BI-RADS Category 3 - 6 month - Probably Benign Finding: Recommend follow-up imaging in 6 months Breast Density - Category B - Scattered areas of fibroglandular density Breast density Category C or D implies that the patient has dense breast tissue. Dense breast tissue can make it harder to find cancer on a mammogram. Dense breast tissue is also associated with an incr eased risk of breast cancer. This information about the result of the mammogram report was provided to the patient to raise their awareness. Use this report when you speak with the patient about their risks for breast cancer, which includes their family history. At that time, you may recommend additional screening tests (Ultrasoun d or MRI) as these tests may add significant information. A negative radiographic report should not delay biopsy if a dominant or clinically suspicious mass is present. Up to ten percent of cancers are not identified on mammography. A negative report may reinforce clinical impression. Adenosis and dense breasts may obscure an underlying neoplasm. False positive reports average 6 to 10%. Patient will receive a letter notifying them of these results.
--- NOTE | 2021-12-30 06:45 | DI.DEXA_ITS ---
Exam(s) XR DEXA BONE DENSITY W/WO FARSHAD EXAM: XR DEXA BONE DENSITY W/WO FARSHAD CLINICAL HISTORY: Osteoporosis, fosamax started 2020,m81.0 TECHNIQUE: COMPARISON: CR XR DEXA BONE DENSITY W/WO FARSHAD from 11/15/2019 FINDINGS: Lateral Spine Image: Unremarkable. No compression deformities identified. Left hip: Total T-Score: -1.6. This compares to -1.5 on the prior examination. Total Z-Score: 0.0 T- and Z-scores: Findings are consistent with osteopenia. Lumbar Spine: Total T-Score: -1.3. This compares to -1.5 on the prior examination. Total Z-Score: 0.9 T- and Z-scores: Findings are consistent with osteopenia. IMPRESSION: No evidence of osteoporosis.
== END 2021-12-30 02:07 ==
LOC: DI 01:47
PROVIDERS: PCP Nurse Practitioner Family; Visit Provider Nurse Practitioner Family
DX: M85.89 Other specified disorders of bone density and structure, multiple sites (principal); Z78.0 Asymptomatic menopausal state; R92.8 Other abnormal and inconclusive findings on diagnostic imaging of breast; Z13.820 Encounter for screening for osteoporosis; Z12.31 Encounter for screening mammogram for malignant neoplasm of breast
CPT/HCPCS: 76642; 77063; 77067; 77080

== ENCOUNTER → 2022-01-19 09:18 | Outpatient (BNVA) | payer MEDICARE, SELFPAY | PROVIDERS: PCP Nurse Practitioner Family; Referring Provider Nurse Practitioner Family; Visit Provider Psychiatry & Neurology Neurology | DX: G40.309 Generalized idiopathic epilepsy and epileptic syndromes, not intractable, without status epilepticus (principal); R41.3 Other amnesia | CPT/HCPCS: 99214 ==

== ENCOUNTER 2022-03-27 07:06 | Emergency (ER) | payer MEDICARE, SELFPAY ==
[2022-03-27 07:19] VITALS: BP 139/68; PULSE 70; RESP 22; TEMP 36.8; O2SAT 97
--- NOTE | 2022-03-27 07:30 | DI.RAD_ITS ---
Exam(s) XR CHEST 2V PA LATERAL EXAM: XR CHEST 2V PA LATERAL CLINICAL HISTORY: cough, r/o pneumonia TECHNIQUE: 2D digital imaging was performed. COMPARISON: No exams were available for comparison FINDINGS: HEART: Normal size. Aorta: Not dilated. PULMONARY VASCULATURE: Normal. LUNGS: No focal infiltrate. Mild fibrotic changes. PLEURAL SPACE: No pleural effusion or pneumothorax. BONE:Unremarkable for age. IMPRESSION: No acute abnormality. DATA REPOSITORY: RADIATION DOSE DELIVERED:
--- NOTE | 2022-03-27 07:39 | W.ED.GENAD ---
Discharge Plan Disposition Patient Disposition: Home Condition: Stable Discharge Details Clinical Impression: Pneumonia Primary Care Provider: Lorelei Ferguson ED Provider: Zafar Bowman Home Meds and New Rx's Prescriptions: New doxycycline hyclate 100 mg tablet 100 mg PO BID Qty: 13 0RF lisinopril 2.5 mg tablet 2.5 mg PO DAILY Qty: 30 0RF Continued multivitamin [Daily Multi-Vitamin] tablet 1 tab PO DAILY calcium carbonate [Calcium 600] 600 mg calcium (1,500 mg) tablet 600 mg PO DAILY aspirin 81 mg tablet,delayed release (DR/EC) 81 mg PO DAILY lorazepam 0.5 mg tablet 0.5 mg PO ONCE PRN (Reason: anxiety) Qty: 2 0RF Rx Instructions: Take 1 tab 30min prior to MRI. Ok to take 2nd if still claustrophobic. mometasone 0.1 % ointment 1 applic topical .qod Qty: 15 1RF Rx Instructions: apply to both ear canals with fingertip every other day atorvastatin [Lipitor] 40 mg tablet 40 mg PO DAILY Qty: 90 4RF bisoprolol fumarate 5 mg tablet 5 mg PO DAILY Qty: 90 4RF omeprazole 20 mg tablet,delayed release (DR/EC) 20 mg PO DAILY Qty: 90 4RF lamotrigine 100 mg tablet 100 mg PO BID Qty: 180 3RF alendronate [Fosamax] 70 mg tablet 70 mg PO QWEEK Qty: 15 3RF Rx Instructions: Take 1 tablet once a week with water 30-60min before other meds or food, stay upright for >30 min after Discontinued lisinopril 2.5 mg tablet 2.5 mg PO DAILY Qty: 90 4RF Discharge Instructions Instructions: Albuterol (By breathing), Pneumonia (ED) Additional Instructions: Please take full course of antibiotic as prescribed. You were given your initial dose here in the emergency department. Your next dose should be tonight. Please be sure to pick this up at the pharmacy today. Use albuterol inhaler with spacer every two puffs every 4 hours as needed for shortness of breath or wheezing. Please drink plenty of fluids to stay hydrated and allow for plenty of rest. Please contact your primary care physician to arrange follow-up. Return to the ER immediately for any worsening or new concerning symptoms. Referrals: Lorelei Ferguson NP [Primary Care Provider] - Discharge Data Discharge Date/Time-TO BE ENTERED AT DEPARTURE: 03/27/22 09:58 Medical Decision Making 0730 -- 72-year-old female with a history of hypertension, hyperlipidemia, coronary artery disease, obstructive sleep apnea, CKD and former tobacco smoking presents for 2 weeks of occasionally productive cough and intermittent shortness of breath with coughing fits. Patient actively coughing on exam. She has normal respiratory rate and oxygen saturation. She is afebrile and appears nontoxic. She has clear breath sounds throughout but she sounds like she has chest congestion. Normal oropharynx. Per discussion with patient in room and review of possible etiologies, discussed if she was taking lisinopril and she states this is not on her medication list. Upon review of her medications, lisinopril is on her list. As she has occasionally productive cough, consider bronchitis, COVID, pneumonia, influenza and RSV. Will obtain a fluvid, chest x-ray and give a DuoNeb and p.o. prednisone. 0815 --Case endorsed to Dr. Bowman to follow-up on labs and imaging and final disposition. Medical Records Medical records reviewed: Yes I reviewed the patient's medical records. HPI General Mode of arrival: ambulatory. Date/Time Provider Initiated Documentation: 03/27/22 07:26. Limitations to Documentation: no limitations. Information obtained by: patient. HPI Narrative: Patient is a 72-year-old female with a history of former tobacco smoking, hypertension, hyperlipidemia, coronary artery disease, obstructive sleep apnea, seizures, GERD, CKD who presents to the emergency department with a complaint of cough for the past 2 weeks. Pt states she is occasionally coughing up yellow sputum but states she mainly has congestion in her chest. She states she occasionally has shortness of breath when she has coughing fits. She states she has not seen a doctor for her complaints or taken any medication. She states she has been eating and drinking normally and denies any known fever, sore throat, chest pain, vomiting or diarrhea. Related Data Home Medications Medication Instructions Recorded Confirmed multivitamin (Daily Multi-Vitamin 1 tab PO DAILY 11/24/17 03/27/22 tablet) calcium carbonate 600 mg calcium 600 mg PO DAILY 07/19/20 03/27/22 (1,500 mg) tablet (Calcium) aspirin 81 mg tablet,delayed 81 mg PO DAILY 12/03/20 03/27/22 release atorvastatin 40 mg tablet (Lipitor) 40 mg PO DAILY #90 tabs 03/12/21 03/27/22 bisoprolol fumarate 5 mg tablet 5 mg PO DAILY #90 tabs 03/12/21 03/27/22 mometasone 0.1 % topical ointment 1 applic topical .qod #15 grams 05/29/21 03/27/22 omeprazole 20 mg tablet,delayed 20 mg PO DAILY #90 tabs 06/26/21 03/27/22 release lamotrigine 100 mg tablet 100 mg PO BID #180 tabs 08/29/21 03/27/22 lorazepam 0.5 mg tablet 0.5 mg PO ONCE PRN anxiety #2 tabs 11/25/21 03/27/22 alendronate 70 mg tablet (Fosamax) 70 mg PO QWEEK #15 tabs 03/13/22 03/27/22 doxycycline hyclate 100 mg tablet 100 mg PO BID #13 tabs 03/27/22 lisinopril 2.5 mg tablet 2.5 mg PO DAILY #30 tabs 03/27/22 Previous Rx's Medication Instructions Recorded atorvastatin 40 mg tablet (Lipitor) 40 mg PO DAILY #90 tabs 03/12/21 bisoprolol fumarate 5 mg tablet 5 mg PO DAILY #90 tabs 03/12/21 mometasone 0.1 % topical ointment 1 applic topical .qod #15 grams 05/29/21 omeprazole 20 mg tablet,delayed 20 mg PO DAILY #90 tabs 06/26/21 release lamotrigine 100 mg tablet 100 mg PO BID #180 tabs 08/29/21 lorazepam 0.5 mg tablet 0.5 mg PO ONCE PRN anxiety #2 tabs 11/25/21 alendronate 70 mg tablet (Fosamax) 70 mg PO QWEEK #15 tabs 03/13/22 doxycycline hyclate 100 mg tablet 100 mg PO BID #13 tabs 03/27/22 lisinopril 2.5 mg tablet 2.5 mg PO DAILY #30 tabs 03/27/22 Allergies Allergy/AdvReac Type Severity Reaction Status Date / Time Penicillins Allergy Severe Anaphylaxis Verified 03/27/22 07:24 Sulfa (Sulfonamide Allergy Severe Anaphylaxis Verified 03/27/22 07:24 Antibiotics) IODINE DYES Allergy Severe Anaphylaxis Uncoded 03/27/22 07:24 General Stated Complaint: RespSymp MARION: 3 Review of Systems All systems reviewed & are unremarkable except as noted in HPI and below Constitutional Constitutional: Reports as per HPI, Denies chills and Denies fever(s) Eyes Eyes: Denies blurry vision ENT Ears, Nose, Mouth, and Throat: Denies dizziness, Denies sore throat and Denies throat swelling Cardiovascular Cardiovascular: Denies chest pain and Reports dyspnea Respiratory Respiratory: Reports cough and Reports dyspnea Gastrointestinal Gastrointestinal: Denies abdominal pain, Denies diarrhea and Denies vomiting Genitourinary Genitourinary: Denies hematuria and Denies dysuria Musculoskeletal Musculoskeletal: Denies back pain and Denies numbness Integumentary/Breasts Skin/Breast: Denies lesions and Denies rash Neurologic Neurologic: Denies dizziness, Denies localized weakness and Denies numbness Allergic/Immunologic Allergic/Immunologic: Denies throat swelling PFSH All Active Problems (Updated 03/27/22 @ 09:32 by Zafar Bowman MD) Pneumonia (Acute) CKD (chronic kidney disease) stage 3, GFR 30-59 ml/min (Chronic) Coronary artery disease, non-occlusive (Chronic) Atretic LAD. 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) Atopic dermatitis (Chronic) Allergic rhinitis (Chronic) GERD (gastroesophageal reflux disease) (Chronic) Depressive disorder (Chronic) Osteoporosis (Chronic) Alendronate started 10/2019, DEXA 10/2019 Memory loss (Chronic) Chronic suppurative otitis media of left ear (Chronic) Chronic eczematoid otitis externa of both ears (Chronic) Chronic bacterial otitis externa of left ear (Chronic) Sensorineural hearing loss, bilateral (Chronic) 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) Tubular adenoma of colon (Chronic ~07/18/21) Medical History Former cigarette smoker 23pack-yr hx Migraine headache without aura (02/01/15) [place] lesion (~09/2017) To left lateral thigh Non-ischemic cardiomyopathy NSTEMI (non-ST elevated myocardial infarction) (~2011) 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Prediabetes Surgical History History of arthroplasty of right shoulder History of colonoscopy with polypectomy (07/18/21) History of left mastoidectomy With paraganglioma excision, 2013, at [facility] [place] History of revision of total replacement of right hip joint (01/03/16) History of tonsillectomy and adenoidectomy S/P appendectomy S/P colonoscopy (07/18/21) 11/18/15 07/18/21 [place] S/P laparoscopic hysterectomy (~1988) S/P left oophorectomy (~1988) S/P right oophorectomy (~1969) Status post total hip replacement, 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 Brother Hypertension Heart attack Brother Hypertension Type 2 diabetes mellitus Brother No problems noted. Son Epilepsy Son No problems noted. Son No problems noted. Son No problems noted. Daughter No problems noted. Maternal Grandfather No problems noted. Maternal Grandmother No problems noted. Paternal Grandfather No problems noted. Paternal Grandmother No problems noted. Social History Smoking/Tobacco Use Status: Former Tobacco Use Quit Date: 03/22/89 Pack-years: 23 Smoking risk assessment performed?: Yes Alcohol Intake: never Drug use: Never Substance use type: does not use Adopted: No Household members: spouse Housing: house current occupation: HOUSEWIFE Pets and animals: No What is your relationship status?: How often do you talk on the phone with friends or family?: never Panel score (0-1 are the most socially isolated patients): 1 Seatbelt use: always Drive intox or ride w/intox spike driver: No Do you feel safe at home: Yes Do you feel safe in your relationship?: Yes Female Reproductive History Menstrual Menopause type: surgical History History 5 Para 5 Hx # Term Pregnancies Multiple births Hx # Pregnancies Ectopic pregnancies AB induced Hx Number of Living Children 5 AB spontaneous Exam Const General: cooperative and no acute distress Orientation: alert, awake and oriented x3 HENMT Head: normal to inspection Face and sinus: normal facial exam Eyes General: appearance normal, both eyes and all related structures Pupils: PERRL EOM: EOM intact bilaterally Neck Neck: normal visual inspection and No submandibular swelling Lymphatic: no lymphadenopathy noted Chest Chest: normal inspection of the chest and no tenderness Resp Effort & Inspection: normal respiratory effort, able to speak in complete sentences and cough Quality of cough: actively coughing Auscultation: clear to auscultation bilaterally, no rhonchi and no wheezes Cardio Rate: regular rate Rhythm: regular rhythm GI Inspection: normal to inspection Palpation: soft, not firm, not rigid and nontender Auscultation: hypoactive bowel sounds Skin General skin exam: no rashes or lesions noted Neuro General: patient alert, patient awake and patient oriented x3 Cognition: normal cognition Speech: speech normal Motor: muscle tone normal throughout Sensory Exam: no sensory deficits noted Extrem General: normal to inspection, full ROM and capillary refill normal Psych Appearance: grossly normal Mental Status: mental status grossly normal Speech and Movement: speech and movement normal Affect: normal affect Course Vital Signs Vital signs: Vital Signs Temperature 98.3 F 03/27/22 07:19 Pulse 70 03/27/22 07:19 Respiratory Rate 22 03/27/22 07:19 Blood Pressure 139/68 03/27/22 07:19 Pulse Oximetry 97 03/27/22 07:19 Temperature 98.3 F 03/27/22 07:19 Temperature Source Oral 03/27/22 07:19 Pulse 70 03/27/22 07:19 Respiratory Rate 22 03/27/22 07:19 Respiratory Effort Incrsd Work of Breathing 03/27/22 07:24 Respiratory Depth Shallow 03/27/22 07:24 Blood Pressure 139/68 03/27/22 07:19 Blood Pressure Position Sitting 03/27/22 07:19 Pulse Oximetry 97 03/27/22 07:19 Oxygen Delivery Method Room Air 03/27/22 07:19 Oxygen Flow Rate 0 03/27/22 07:19 Pain Level 10 03/27/22 07:19 Sign Out Sign Out Data: Sign Out Comment: Chronic cough for 2 weeks. Lisinopril is on her medication list so this may be a possibility. Follow-up on fluvid and chest x-ray and response to medications. Last updated by Galina Garcia DO at 03/27/22 07:49
[2022-03-27 08:15] VITALS: RESP 1; O2SAT 95
[2022-03-27] MEDS: predniSONE 20 MG TAB 60 MG PO (08:15)
[2022-03-27] MEDS: guaiFENesin/CODEINE PHOSPHATE 10 ML CUP PO (08:15)
[2022-03-27] MEDS: Albuterol/Ipratropium 3 ML UPD VIAL UPD (08:15)
[2022-03-27 08:31] LABS: COVID-19 PCR Negative (Negative); Influenza A PCR Negative (Negative); Influenza B PCR Negative (Negative); RSV PCR Negative (Negative); Source Nasopharynx
--- NOTE | 2022-03-27 09:22 | W.EDPROG ---
Date of service: 03/27/22 Time of Service: 09:22 Medical Decision Making Care was signed out by Dr. Garcia with plan to follow-up on chest x-ray and reassess patient for disposition. Consider discontinuing lisinopril. Chest x-ray was reviewed and interpreted by radiology: No acute abnormality. Patient reassessed after neb treatment and she is not having any wheeze. She does have significant junky sounding cough with rhonchi bilaterally. Patient is saturating well and in no respiratory distress. Plan to initiate treatment with antibiotic to cover for pneumonia not apparent on chest x-ray. Plan to continue albuterol inhaler treatments. I spoke with the patient's PCP, Lorelei Marin, discussed ED presentation and course, she recommends continuing lisinopril as patient is tolerated for extended period of time. She agrees with discharge with close outpatient follow-up and will ensure follow-up for early next week. Usual customary discharge instructions reviewed with the patient. Patient stable. Patient understands importance of timely follow-up and to return immediately should she have any worsening or new concerning symptoms. Sign Out Sign Out Data: Sign Out Comment: Chronic cough for 2 weeks. Lisinopril is on her medication list so this may be a possibility. Follow-up on fluvid and chest x-ray and response to medications. Last updated by Galina Garcia DO at 03/27/22 07:49 Discharge Plan Disposition Patient Disposition: Home Condition: Stable Discharge Details Clinical Impression: Pneumonia Primary Care Provider: Lorelei Ferguson ED Provider: Zafar Bowman Home Meds and New Rx's Prescriptions: New doxycycline hyclate 100 mg tablet 100 mg PO BID Qty: 13 0RF lisinopril 2.5 mg tablet 2.5 mg PO DAILY Qty: 30 0RF Continued multivitamin [Daily Multi-Vitamin] tablet 1 tab PO DAILY calcium carbonate [Calcium 600] 600 mg calcium (1,500 mg) tablet 600 mg PO DAILY aspirin 81 mg tablet,delayed release (DR/EC) 81 mg PO DAILY lorazepam 0.5 mg tablet 0.5 mg PO ONCE PRN (Reason: anxiety) Qty: 2 0RF Rx Instructions: Take 1 tab 30min prior to MRI. Ok to take 2nd if still claustrophobic. mometasone 0.1 % ointment 1 applic topical .qod Qty: 15 1RF Rx Instructions: apply to both ear canals with fingertip every other day atorvastatin [Lipitor] 40 mg tablet 40 mg PO DAILY Qty: 90 4RF bisoprolol fumarate 5 mg tablet 5 mg PO DAILY Qty: 90 4RF omeprazole 20 mg tablet,delayed release (DR/EC) 20 mg PO DAILY Qty: 90 4RF lamotrigine 100 mg tablet 100 mg PO BID Qty: 180 3RF alendronate [Fosamax] 70 mg tablet 70 mg PO QWEEK Qty: 15 3RF Rx Instructions: Take 1 tablet once a week with water 30-60min before other meds or food, stay upright for >30 min after Discontinued lisinopril 2.5 mg tablet 2.5 mg PO DAILY Qty: 90 4RF Discharge Instructions Instructions: Albuterol (By breathing), Pneumonia (ED) Additional Instructions: Please take full course of antibiotic as prescribed. You were given your initial dose here in the emergency department. Your next dose should be tonight. Please be sure to pick this up at the pharmacy today. Use albuterol inhaler with spacer every two puffs every 4 hours as needed for shortness of breath or wheezing. Please drink plenty of fluids to stay hydrated and allow for plenty of rest. Please contact your primary care physician to arrange follow-up. Return to the ER immediately for any worsening or new concerning symptoms. Referrals: Lorelei Ferguson NP [Primary Care Provider] -
[2022-03-27 09:25] VITALS: BP 142/62; PULSE 82; RESP 16; TEMP 36.9; O2SAT 97
[2022-03-27] MEDS: Albuterol HFA 8 GM 60 PUFF INH IH (09:37)
[2022-03-27] MEDS: Inhaler, Assist Device 1 EACH MC (09:37)
[2022-03-27] MEDS: Doxycycline Hyclate 100 MG CAP PO (09:37)
== END 2022-03-27 09:58 | disposition home or self-care (01) ==
PROVIDERS: Physician Assistant; Emergency Provider Student in an Organized Health Care Education/Training Program; PCP Nurse Practitioner Family
DX: J18.9 Pneumonia, unspecified organism (principal); I12.9 Hypertensive chronic kidney disease with stage 1 through stage 4 chronic kidney disease, or unspecified chronic kidney disease; N18.9 Chronic kidney disease, unspecified; Z20.822 Contact with and (suspected) exposure to COVID-19
CPT/HCPCS: 87637; 94640; 99283; 99284; 71046; J7512; J7620

== ENCOUNTER 2022-07-14 01:02 | Outpatient (CLI) | payer MEDICARE, SELFPAY ==
--- NOTE | 2022-07-14 07:30 | DI.MAMMO_ITS ---
Exam(s) MAMMO DIAGNOSTIC UNI EXAM: MAMMO DIAGNOSTIC UNI CLINICAL HISTORY: 6 month follow up,r92.8,calcifications rt breast. TECHNIQUE: Craniocaudal and mediolateral oblique Full Field Digital Mammography views of the right b reast with Computer Aided Diagnosis followed by Tomosynthesis. COMPARISON: Comparison is made with prior examinations. FINDINGS: Mammography/Tomosynthesis: Masses/Architectural Distortion: No suspicious masses or areas of architectural distortion are seen. Microcalcifictions: No suspicious pleomorphic-type are seen. There are stable benign type calcificati ons in the right breast. Skin Thickening/Nipple Retraction: None. IMPRESSION: 1. No evidence of malignancy is noted. 2. Unless there is more urgent need, follow-up screening mammography is recommended, as per [employer] guidelines. 3. The findings were discussed with the patient on the date of the examination. BI-RADS Category 2 - Benign Findings Breast Density - Category A - Almost entirely fatty Breast density Category C or D implies that the patient has dense breast tissue. Dense breast tissue can make it harder to find cancer on a mammogram. Dense breast tissue is also associated with an incr eased risk of breast cancer. This information about the result of the mammogram report was provided to the patient to raise their awareness. Use this report when you speak with the patient about their risks for breast cancer, which includes their family history. At that time, you may recommend additional screening tests (Ultrasoun d or MRI) as these tests may add significant information. A negative radiographic report should not delay biopsy if a dominant or clinically suspicious mass is present. Up to ten percent of cancers are not identified on mammography. A negative report may reinforce clinical impression. Adenosis and dense breasts may obscure an underlying neoplasm. False positive reports average 6 to 10%. Patient will receive a letter notifying them of these results.
== END 2022-07-14 01:22 ==
LOC: DI 01:02
PROVIDERS: PCP Nurse Practitioner Family; Visit Provider Nurse Practitioner Family
DX: R92.8 Other abnormal and inconclusive findings on diagnostic imaging of breast (principal); Z09 Encounter for follow-up examination after completed treatment for conditions other than malignant neoplasm
CPT/HCPCS: 77061; 77065; G0279

== ENCOUNTER → 2022-07-22 09:16 | Outpatient (BNVA) | payer MEDICARE, SELFPAY | PROVIDERS: PCP Nurse Practitioner Family; Referring Provider Nurse Practitioner Family; Visit Provider Psychiatry & Neurology Neurology | DX: G40.309 Generalized idiopathic epilepsy and epileptic syndromes, not intractable, without status epilepticus (principal); R41.3 Other amnesia | CPT/HCPCS: 99214 ==

== ENCOUNTER → 2022-10-05 10:18 | Outpatient (BNVA) | payer MEDICARE, SELFPAY | PROVIDERS: PCP Nurse Practitioner Family; Referring Provider Nurse Practitioner Family; Visit Provider Psychiatry & Neurology Neurology | DX: G40.309 Generalized idiopathic epilepsy and epileptic syndromes, not intractable, without status epilepticus (principal); R41.3 Other amnesia; I12.9 Hypertensive chronic kidney disease with stage 1 through stage 4 chronic kidney disease, or unspecified chronic kidney disease; N18.9 Chronic kidney disease, unspecified | CPT/HCPCS: 99214 ==

== ENCOUNTER 2022-12-16 07:26 | Outpatient (CLI) | payer MEDICARE, SELFPAY ==
[2022-12-16 13:03] LABS: Anion Gap 5.7 mmol/L (3-11); BUN 17 mg/dL (7-18); CO2 29.3 mmol/L (21.0-32.0); CREATININE 1.2 mg/dL (0.55-1.02); Calcium 9.6 mg/dL (8.5-10.1); Chloride 108 mmol/L (98-107); Estimated GFR 48.09 (mL/min/1.73m2); Glucose 101 mg/dL (74-106); Potassium 4.8 mmol/L (3.5-5.1); Sodium 143 mmol/L (136-145)
== END 2022-12-16 07:27 | disposition home or self-care (01) ==
LOC: LOS 07:27
PROVIDERS: PCP Nurse Practitioner Family; Referring Provider Nurse Practitioner Family; Visit Provider Nurse Practitioner Family
DX: N18.9 Chronic kidney disease, unspecified (principal); E78.5 Hyperlipidemia, unspecified; K21.9 Gastro-esophageal reflux disease without esophagitis; I25.10 Atherosclerotic heart disease of native coronary artery without angina pectoris
CPT/HCPCS: 36415; 80048

== ENCOUNTER 2023-01-08 01:17 | Outpatient (CLI) | payer MEDICARE, SELFPAY ==
--- NOTE | 2023-01-08 08:22 | DI.MAMMO_ITS ---
Exam(s) MAMMO SCREENING EXAM: MAMMO SCREENING CLINICAL HISTORY: screening,z12.39. TECHNIQUE: Bilateral full field digital CC and MLO mammographic images were obtained with 3D tomosyn thesis and utilizing computer aided detection (CAD). COMPARISON: Prior mammograms were reviewed. FINDINGS: There has been no significant change in the appearance and distribution of the fibroglandular tissue. There are no new findings in the immediate vicinity of the biopsy marker clip in the left breast. Benign-appearing micro and macro calcifications are again noted in both breasts. There are no new spiculated masses nor malignant appearing microcalcification groups. There is no significant architectural distortion nor skin thickening-retraction. IMPRESSION: No radiographic evidence of malignancy. Stable benign findings. BI-RADS Category 2 - Benign Findings Breast Density - Category A - Almost entirely fatty Breast density Category C or D implies that the patient has dense breast tissue. Dense breast tissue can make it harder to find cancer on a mammogram. Dense breast tissue is also associated with an incr eased risk of breast cancer. This information about the result of the mammogram report was provided to the patient to raise their awareness. Use this report when you speak with the patient about their risks for breast cancer, which includes their family history. At that time, you may recommend additional screening tests (Ultrasoun d or MRI) as these tests may add significant information. A negative radiographic report should not delay biopsy if a dominant or clinically suspicious mass is present. Up to ten percent of cancers are not identified on mammography. A negative report may reinforce clinical impression. Adenosis and dense breasts may obscure an underlying neoplasm. False positive reports average 6 to 10%. Patient will receive a letter notifying them of these results.
== END 2023-01-08 01:37 ==
PROVIDERS: PCP Nurse Practitioner Family; Visit Provider Nurse Practitioner Family
DX: Z12.31 Encounter for screening mammogram for malignant neoplasm of breast (principal)
CPT/HCPCS: 77063; 77067

== ENCOUNTER → 2023-04-06 09:12 | Outpatient (BNVA) | payer MEDICARE, SELFPAY | PROVIDERS: PCP Nurse Practitioner Family; Visit Provider Psychiatry & Neurology Neurology | DX: G40.309 Generalized idiopathic epilepsy and epileptic syndromes, not intractable, without status epilepticus (principal); R41.3 Other amnesia | CPT/HCPCS: 99213 ==

== ENCOUNTER → 2023-10-06 09:50 | Outpatient (BNVA) | payer MEDICARE, SELFPAY | PROVIDERS: PCP Nurse Practitioner Family; Visit Provider Psychiatry & Neurology Neurology | DX: G40.309 Generalized idiopathic epilepsy and epileptic syndromes, not intractable, without status epilepticus (principal); R41.3 Other amnesia | CPT/HCPCS: 99214 ==

== ENCOUNTER 2024-01-12 03:31 | Outpatient (CLI) | payer MEDICARE, SELFPAY ==
[2024-01-12 08:37] LABS: BUN 16 mg/dL (7-18); CREATININE 1.1 mg/dL (0.55-1.02); Calcium 9.5 mg/dL (8.5-10.1); Calculated LDL 33 mg/dL (<100); Chloride 111 mmol/L (98-107); Cholesterol 93 mg/dL (<200); Estimated GFR 53.06 (mL/min/1.73m2); Glucose 96 mg/dL (74-106); HDL Cholesterol 43 mg/dL (40-60); Sodium 147 mmol/L (136-145); Triglyceride 85 mg/dL (<150)
== END 2024-01-12 03:32 | disposition home or self-care (01) ==
LOC: LBO 03:31
PROVIDERS: PCP Nurse Practitioner Family; Visit Provider Emergency Medicine
DX: E78.5 Hyperlipidemia, unspecified (principal); I10 Essential (primary) hypertension
CPT/HCPCS: 36415; 80048; 80061

== ENCOUNTER 2024-09-22 18:12 | Observation (INO) | payer MEDICARE, SELFPAY ==
[2024-09-22] VITALS (36 sets, daily range): BP systolic 125–192; BP diastolic 54–93; PULSE 61–75; RESP 13–21; TEMP 37.2; O2SAT 93–98
--- NOTE | 2024-09-22 18:00 | RT.EKG_ITS ---
APPROVED REPORT Exam: Resting ECG Reason for Exam: weakness Patient Location: E HR:64 bpm ECG Measurements Heart Rate 64 AXIS NC 78 P 49 QRSd 93 QRS -9 QT 409 T 49 QTc 423 Conclusion Sinus rhythm...normal P axis, V-rate 60- 99 I have reviewed and interpreted ECG and agree with software generated interpretation.
[2024-09-22 18:24] LABS: BE (Venous) 3 mmol/L (-2-3); HCO3 (Venous) 28 mmol/L (23-28); O2 Sat (Venous) 55 %; TCO2 (Venous) 26 mmol/L (24-29); pCO2 (Venous) 48 mmHg (41-51); pO2 (Venous) 29 mmHg
[2024-09-22 18:26] LABS: Abs Immature Grans 0.02 10^3/uL (0.0-0.06); HCT 41.1 % (36.0-46.0); HGB 13.3 g/dL (11.2-15.7); Immature Grans % 0.3 %; MCH 31.4 pg (27.0-33.0); MCHC 32.4 % (32.0-36.0); MCV 97 fL (80-95); MPV 10.3 fL (8.0-11.0); Platelet Count 132 10^3/uL (130-400); RBC 4.24 10^6/uL (3.93-5.22); RDW 12.6 % (11.7-14.6); RDW-SD 44.7 fL; WBC 6.56 10^3/uL (4.4-10.8)
--- NOTE | 2024-09-22 18:29 | DI.CT_ITS ---
Exam(s) CT HEAD WO EXAM: CT HEAD WO CLINICAL HISTORY: left sided weakness, eval for stroke. TECHNIQUE: Imaging Protocol: Axial computed tomography images with coronal and sagittal reformatted images were created and reviewed COMPARISON: No exams were available for comparison FINDINGS: There are no skull fractures. There is no fluid in the visualized paranasal sinuses. There is no evidence of intracranial hemorrhage, mass effect, or shift of midline structures. There are no extra-axial fluid collections. The ventricles are not enlarged or shifted and there is no blood within the ventricular system nor within the basal cisterns. There is some periventricular hypodensity noted which is slightly more prominent on the right side, possibly significant. There is symmetrical cerebellar atrophy. IMPRESSION: There is very mild asymmetry in the amount of bilateral periventricular hypodensity, slightly more prominent on the right side and this possibly significant with respect to early infarct. If clinically indicated follow-up MRI with diffusion imaging can be performed for added sensitivity and specificit y. Report called by myself to ER physician 09/22/2024 at 6:30 p.m. RADIATION DOSE DELIVERED: Total DLP DATA REPOSITORY: All CT scans at this facility are submitted to the National Radiology Data Registry (NRDR) Dose Index Registry (DIR) with the [employer] ([employer]). RADIATION OPTIMIZATION: All CT scans at this facility use at least one of these dose optimization techniques: automated exposure control; mA and/or kV adjustment per patient size (includes targeted exams where dose is matched to clinical indication); or iterative reconstruction.
[2024-09-22 18:37] LABS: INR 1.0 (0.9-1.1); PTT Activated 24.3 sec (20.6-30.2); Prothrombin Time 10.2 sec (9.1-11.1)
[2024-09-22 18:51] LABS: ALT 33 U/L (14-59); AST 27 U/L (15-37); Albumin 3.4 g/dL (3.4-5.0); Alkaline Phosphatase 122 U/L (46-116); Anion Gap 7.8 mmol/L (3-11); BUN 15 mg/dL (7-18); Bilirubin, Total 0.4 mg/dL (0.2-1.0); CO2 29.2 mmol/L (21.0-32.0); Calcium 9.4 mg/dL (8.5-10.1); Chloride 107 mmol/L (98-107); Estimated GFR 59.12 (mL/min/1.73m2); Glucose 108 mg/dL (74-106); Potassium 4.3 mmol/L (3.5-5.1); Sodium 144 mmol/L (136-145); TSH (W/Ref FT4) 8.07 uIU/mL (0.36-3.74); Total Protein 6.9 g/dL (6.4-8.2)
[2024-09-22 18:52] LABS: Troponin I 95 ng/L (<or=51)
[2024-09-22 19:01] LABS: Glucose Negative (Negative)
[2024-09-22 19:09] LABS: RBC 0-2 HPF (0-2); WBC 0-2 HPF (0-5)
[2024-09-22 19:10] LABS: C & S Indicated? No
[2024-09-22 19:47] LABS: Troponin I 99 ng/L (<or=51)
--- NOTE | 2024-09-22 19:55 | W.ED.GENAD ---
Discharge Plan Disposition Patient Disposition: Admit to [facility] Condition: Good Discharge Details Clinical Impression: Brain TIA, Acute UTI Primary Care Provider: Lorelei Ferguson ED Provider: Gregorio Torres Home Meds and New Rx's Prescriptions: No Action multivitamin [Daily Multi-Vitamin] tablet 1 tab PO DAILY calcium carbonate [Calcium 600] 600 mg calcium (1,500 mg) tablet 600 mg PO DAILY aspirin 81 mg tablet,delayed release (DR/EC) 81 mg PO DAILY mometasone 0.1 % ointment 1 applic topical .qod Qty: 15 1RF Rx Instructions: apply to both ear canals with fingertip every other day lamotrigine 100 mg tablet 100 mg PO BID Qty: 180 3RF bisoprolol fumarate 5 mg tablet 5 mg PO DAILY Qty: 90 3RF atorvastatin [Lipitor] 40 mg tablet 40 mg PO DAILY Qty: 90 3RF alendronate [Fosamax] 70 mg tablet 70 mg PO QWEEK Qty: 15 3RF Rx Instructions: Take 1 tablet once a week with water 30-60min before other meds or food, stay upright for >30 min after omeprazole 20 mg capsule,delayed release(DR/EC) 20 mg PO DAILY Qty: 90 5RF memantine 10 mg tablet 10 mg PO BID Qty: 180 2RF HPI General Date/Time Provider Initiated Documentation: 09/22/24 18:42. HPI Narrative: 74-year-old female with a past medical history of coronary artery disease with cardiac stenting 2011, chronic kidney disease, hypertension, high cholesterol, who presents today for evaluation of left-sided weakness. Patient is not an ideal historian, but per history from the patient and EMS it sounds like that at 5 PM she had sudden onset left arm and left leg weakness and numbness and tingling. EMS was called, she did not fall or hit her head. She did have a mild headache during that time. She was brought to the ER for further assessment and by the time she arrived the weakness in her arm completely resolved, the tingling in her arms and legs completely resolved, she only had some very mild residual weakness in her left lower extremity. Headache had also significantly improved/resolved. She denies any history of stroke in the past. She denies any falls or trauma. She does not take any blood thinners aside for aspirin. No other complaints at this time. No other modifying factors. Related Data Home Medications ?Medication ?Instructions ?Recorded ?Confirmed multivitamin (Daily Multi-Vitamin 1 tab PO DAILY 11/24/17 12/24/23 tablet) calcium carbonate (Calcium 600) 600 mg PO DAILY 07/19/20 12/24/23 aspirin 81 mg tablet,delayed 81 mg PO DAILY 12/03/20 12/24/23 release mometasone 0.1 % topical ointment 1 applic topical .qod #15 grams 05/29/21 12/24/23 atorvastatin 40 mg tablet (Lipitor) 40 mg PO DAILY #90 tabs 09/06/23 12/24/23 bisoprolol fumarate 5 mg tablet 5 mg PO DAILY #90 tabs 09/06/23 12/24/23 lamotrigine 100 mg tablet 100 mg PO BID #180 tabs 10/06/23 12/24/23 alendronate 70 mg tablet (Fosamax) 70 mg PO QWEEK #15 tabs 10/25/23 12/24/23 omeprazole 20 mg capsule,delayed 20 mg PO DAILY #90 caps 06/08/24 release memantine 10 mg tablet 10 mg PO BID #180 tabs 07/14/24 Previous Rx's ?Medication ?Instructions ?Recorded mometasone 0.1 % topical ointment 1 applic topical .qod #15 grams 05/29/21 atorvastatin 40 mg tablet (Lipitor) 40 mg PO DAILY #90 tabs 09/06/23 bisoprolol fumarate 5 mg tablet 5 mg PO DAILY #90 tabs 09/06/23 lamotrigine 100 mg tablet 100 mg PO BID #180 tabs 10/06/23 alendronate 70 mg tablet (Fosamax) 70 mg PO QWEEK #15 tabs 10/25/23 omeprazole 20 mg capsule,delayed 20 mg PO DAILY #90 caps 06/08/24 release memantine 10 mg tablet 10 mg PO BID #180 tabs 07/14/24 Allergies Allergy/AdvReac Type Severity Reaction Status Date / Time Penicillins Allergy Severe Anaphylaxis Verified 09/22/24 18:12 Sulfa (Sulfonamide Allergy Severe Anaphylaxis Verified 09/22/24 18:12 Antibiotics) IODINE DYES Allergy Severe Anaphylaxis Uncoded 09/22/24 18:12 General Stated Complaint: CVA/TIA MARION: 3 Exam Narrative Exam Narrative: 1.Const: Well-nourished, Well-developed, appearing stated age 2.Eyes: PERRL, no conjunctival injection, and symmetrical lids. 3.ENT: Atraumatic external nose and ears. Moist MM. Neck: Symmetric, trachea midline, No thyromegaly. 4.CVS: +S1/S2, Peripheral pulses 2+ and equal in all extremities. Brisk capillary refill in all extremities. 5.RESP: Unlabored respiratory effort. Clear to auscultation bilaterally. No wheezes rales or rhonchi 6.GI: Soft, Nontender/Nondistended, No hepatosplenomegaly. No guarding or rebound. 7.MSK: Normocephalic/Atraumatic, Extremities w/o deformity or ttp No cyanosis or clubbing, Normal movement of all extremities 8.Skin: Warm, Dry. No rashes or lesions. 9.Neuro: climate change risk assessor II-XII grossly intact. Sensation grossly intact, no focal neurologic deficits. All 6 cardinal planes of vision are fully intact. No evidence of rotatory or vertical nystagmus. The patient demonstrated a normal [id number], good dexterity. There was no evidence of dysdiadochokinesia. Zjhl-xw-gjku testing was normal for the right lower extremity, however the left lower extremity had some difficulty performing eeld-yu-bmyk. Sensation was intact bilaterally as well as muscle strength bilaterally for all extremities. Patient has 5 out of 5 muscle strength to the upper extremities bilaterally, 5 out of 5 strength for the right lower extremity, and 4 out of 5 strength for the left lower extremity. Patient was able to verbalize butter cup with no slurring, or miss pronunciation. NIH stroke scale of 1 secondary to inability to perform [id number] left lower extremity. 10.Psych: (AAO) x3. Appropriate mood and affect Course Vital Signs Vital signs: Vital Signs Pulse 69 09/22/24 18:06 Respiratory Rate 18 09/22/24 18:06 Blood Pressure 177/93 H 09/22/24 18:06 Pulse Oximetry 98 09/22/24 18:06 Pulse 63 09/22/24 18:50 Pulse 63 09/22/24 18:50 Respiratory Rate 14 09/22/24 18:50 Respiratory Effort Non-Labored 09/22/24 18:58 Respiratory Depth Normal 09/22/24 18:58 Respiratory Pattern Normal 09/22/24 18:58 Blood Pressure 184/81 H 09/22/24 18:46 Blood Pressure Mean 117 09/22/24 18:46 Pulse Oximetry 97 09/22/24 18:50 Oxygen Delivery Method Room Air 09/22/24 18:06 Oxygen Flow Rate 0 09/22/24 18:06 Lab/Test Results Lab/Test Results: Laboratory Tests Range/Units 09/22/24 09/22/24 09/22/24 18:18 18:50 19:18 WBC (4.4-10.8) 10^3/uL 6.56 RBC (3.93-5.22) 10^6/uL 4.24 Hgb (11.2-15.7) g/dL 13.3 Hct (36.0-46.0) % 41.1 MCV (80-95) fL 97 H MCH (27.0-33.0) pg 31.4 MCHC (32.0-36.0) % 32.4 RDW (11.7-14.6) % 12.6 Plt Count (130-400) 10^3/uL 132 MPV (8.0-11.0) fL 10.3 Immature Gran % % 0.3 Neutrophils % % 74.9 Lymphocytes % % 17.2 Monocytes % % 5.9 Eosinophils % % 1.5 Basophils % % 0.2 Nucleated RBC % (0.0-0.3) % 0.0 Absolute Neutrophils (1.2-6.7) 10^3/uL 4.91 Absolute Lymphocytes (1.2-3.4) 10^3/uL 1.13 L Absolute Monocytes (0.1-0.8) 10^3/uL 0.39 Absolute Eosinophils (0.0-0.7) 10^3/uL 0.10 Absolute Basophils (0.0-0.2) 10^3/uL 0.01 PT (9.1-11.1) sec 10.2 INR (0.9-1.1) 1.0 APTT (20.6-30.2) sec 24.3 VBG pH (7.31-7.41) 7.38 VBG pCO2 (41-51) mmHg 48 VBG pO2 mmHg 29 VBG HCO3 (23-28) mmol/L 28 VBG Total CO2 (24-29) mmol/L 26 VBG O2 Saturation % 55 VBG Base Excess (-2-3) mmol/L 3 Sodium (136-145) mmol/L 144 Potassium (3.5-5.1) mmol/L 4.3 Chloride (98-107) mmol/L 107 Carbon Dioxide (21.0-32.0) mmol/L 29.2 Anion Gap (3-11) mmol/L 7.8 BUN (7-18) mg/dL 15 Creatinine (0.55-1.02) mg/dL 1.0 Est GFR (CKD-EPI 2020) (mL/min/1.73m2) 59.12 Glucose (74-106) mg/dL 108 H Calcium (8.5-10.1) mg/dL 9.4 Total Bilirubin (0.2-1.0) mg/dL 0.4 AST (15-37) U/L 27 ALT (14-59) U/L 33 Alkaline Phosphatase (46-116) U/L 122 H Troponin I (<or=51) ng/L 95 H* 99 H* Total Protein (6.4-8.2) g/dL 6.9 Albumin (3.4-5.0) g/dL 3.4 TSH (0.36-3.74) uIU/mL 8.07 H Free T4 (0.76-1.46) ng/dL 0.93 Urine Color (Yellow) Yellow Urine Clarity (Clear) Clear Urine pH (5-8) 7.0 Ur Specific [place] (1.005-1.025) 1.010 Urine Protein (Neg-Trace) mg/dL Negative Urine Ketones (Negative) mg/dL Negative Urine Blood (Negative) Small H Urine Nitrite (Negative) Positive H Urine Bilirubin (Negative) Negative Urine Urobilinogen (Up to 0.2) mg/dL 0.2 Ur Leukocyte Esterase (Negative) Small H Urine RBC (0-2) HPF 0-2 Urine WBC (0-5) HPF 0-2 Ur Epithelial Cells (Negative) HPF Rare Urine Crystals (Negative) HPF Negative Urine Bacteria (Negative) HPF Many Urine Casts (Negative) LPF Negative Urine Mucus (Negative) Negative Ur Culture Indicated? No Urine Glucose (Negative) mg/dL Negative Medical Decision Making 74-year-old female with a past medical history of coronary artery disease with cardiac stenting 2011, chronic kidney disease, hypertension, high cholesterol, who presents today for evaluation of left-sided weakness. Patient is not an ideal historian, but per history from the patient and EMS it sounds like that at 5 PM she had sudden onset left arm and left leg weakness and numbness and tingling. EMS was called, she did not fall or hit her head. She did have a mild headache during that time. She was brought to the ER for further assessment and by the time she arrived the weakness in her arm completely resolved, the tingling in her arms and legs completely resolved, she only had some very mild residual weakness in her left lower extremity. Headache had also significantly improved/resolved. She denies any history of stroke in the past. She denies any falls or trauma. She does not take any blood thinners aside for aspirin. No other complaints at this time. No other modifying factors. Neurologic exam shows evidence of subtle left lower extremity weakness in comparison to the right, normal sensation throughout, normal rectal tone. Normal perirectal sensation. No evidence of cauda equina syndrome. No dysdiadochokinesia of the upper extremities. Difficulty with [id number] for the left lower extremity. Concern for potential stroke. Patient is within the tPA/TNK window, however symptomatology does not seem to indicate thrombolytics at this time with her rapidly improving symptoms. We will perform CT scan and hold off on CTA for the time being secondary to improving symptoms and her history of chronic kidney disease. We we will evaluate for infectious etiologies monitor closely and reassess. 7:[address] scan shows some mild asymmetric amount of bilateral periventricular hypodensity, worse on the right than the left. No evidence of large stroke otherwise. No bleed. Teleneuro was consulted (Dr Duran) and they evaluated the patient. They agreed that the patient is not a candidate for tPA or TNK at this time, and recommend admission, telemetry, MRI and echo. They do recommend loading with 300 of Plavix and then transitioning to 75 mg of Plavix daily. Patient's laboratory workup is otherwise stable. No significant white count or bandemia. She does have evidence of urinary tract infection. EKG stable, initial troponin in the mid 90s, with no exponential increase. She has no chest pain. No chest tightness or chest heaviness. Symptoms inconsistent with STEMI or ACS. Suspect mild demand ischemia. Patient does have evidence of a mild UTI. She does have a penicillin allergy, because of nitrite positive leuk esterase positive we will give dose of Levaquin for treatment. Discussed the case with the hospitalist Dr. Bean. He agrees with assessment and plan. Patient will be admitted for MRI, echo, and further monitoring. As the patient's renal function did return stable, she is a candidate for CTA, and we will order this to start/expedite. FINDINGS: There are no skull fractures. There is no fluid in the visualized paranasal sinuses. There is no evidence of intracranial hemorrhage, mass effect, or shift of midline structures. There are no extra-axial fluid collections. The ventricles are not enlarged or shifted and there is no blood within the ventricular system nor within the basal cisterns. There is some periventricular hypodensity noted which is slightly more prominent on the right side, possibly significant. There is symmetrical cerebellar atrophy. IMPRESSION: There is very mild asymmetry in the amount of bilateral periventricular hypodensity, slightly more prominent on the right side and this possibly significant with respect to early infarct. If clinically indicated follow-up MRI with diffusion imaging can be performed for added sensitivity and specificity. Critical Care Time Critical Care Time Critical Care Time: Yes Total Critical Care Time: 45 Attestation: Upon my evaluation, this patient had a high probability of imminent or life-threatening deterioration, which required my direct attention, intervention, and personal management. I have personally provided 45 minutes of critical care time exclusive of time spent on separately billable procedures. Time includes review of laboratory data, radiology results, discussion with consultants, and monitoring for potential decompensation. Interventions were performed as documented. PFSH All Active Problems (Updated 09/22/24 @ 20:21 by Gregorio Torres DO) Acute UTI (Acute) Brain TIA (Acute) Coronary artery disease, non-occlusive (Chronic) Atretic LAD. Cardiac cath at 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) Atopic dermatitis (Chronic) Allergic rhinitis (Chronic) Medical History Depressive disorder Prediabetes NSTEMI (non-ST elevated myocardial infarction) (~2011) Former cigarette smoker 23pack-yr hx 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 (~09/2017) To left lateral thigh Tubular adenoma of colon (~07/18/21) Migraine headache without aura (02/01/15) Non-ischemic cardiomyopathy Surgical History History of colonoscopy with polypectomy (07/18/21) History of left mastoidectomy With paraganglioma excision, 2012, at [facility] History of tonsillectomy and adenoidectomy History of arthroplasty of right shoulder History of revision of total replacement of right hip joint (01/03/16) S/P appendectomy S/P colonoscopy (07/18/21) 11/18/15 07/18/21 [place] S/P left oophorectomy (~1988) S/P laparoscopic hysterectomy (~1988) S/P right oophorectomy (~1969) Status post total hip replacement, 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 Brother Hypertension Heart attack Brother Hypertension Type 2 diabetes mellitus Brother No problems noted. Son Epilepsy Son No problems noted. Son No problems noted. Son No problems noted. Daughter No problems noted. Maternal Grandfather No problems noted. Maternal Grandmother No problems noted. Paternal Grandfather No problems noted. Paternal Grandmother No problems noted. Social History Smoking/Tobacco Use Status: Never Smoking risk assessment performed?: Yes Alcohol Intake: never Drug use: Never Substance use type: does not use Adopted: No Household members: spouse Housing: house current occupation: HOUSEWIFE Pets and animals: No What is your relationship status?: How often do you talk on the phone with friends or family?: never Panel score (0-1 are the most socially isolated patients): 1 Seatbelt use: always Drive intox or ride w/intox cmv driver: No Do you feel safe at home: Yes Do you feel safe in your relationship?: Yes Female Reproductive History Menstrual Menopause type: surgical History History 5 Para 5 Hx # Term Pregnancies Multiple births Hx # Pregnancies Ectopic pregnancies AB induced Hx Number of Living Children 5 AB spontaneous
[2024-09-22] MEDS: Clopidogrel 300 MG TAB PO (20:07)
--- NOTE | 2024-09-22 20:39 | W.PM.HP.N ---
Date of service: 09/22/24 Time of Service: 20:39 Assessment and Plan Assessment and plan (1) CVA (cerebral vascular accident): Status: Chronic Assessment and plan: Plan is to get MRI and echo with bubble study. Consult PT. Pt does not appear to need ST eval at this point. Plavis was started at 300mg loading and will c/w 75mg daily. Pt on asa and lipitor. Allow for permissive htn for at least the first 12-24 hours (2) Coronary artery disease, non-occlusive: Status: Chronic Assessment and plan: noted, cw medical management including lipitor and asa (3) Elevated MCV: Status: Acute Assessment and plan: check fe/tibc/b12/folate for mixed d/o anemia (4) Elevated TSH: Status: Acute Assessment and plan: Pt does have a fairly significant elevation in her TSH with low normal FT4. Consider synthroid supplementation but can defer to outpatient setting (5) Elevated troponin: Status: Acute Assessment and plan: asymptomatic with bland EKG. Will recheck in am but pt does not have symptoms of acs at this point (6) UTI (urinary tract infection): Status: Acute Assessment and plan: will do urine culture but as pt is asymptomatic, will not pursue abx. Would recommend macrobid if treatment is pursued (7) Hypertension: Status: Chronic Assessment and plan: as above, allow for permissive htn for now. Pt on bisoprolol 5mg daily. (8) Epilepsy: Status: Acute Assessment and plan: pt on lamictal. Will add lamictal level for completeness. No s/s of seizure activity currently (9) Dyslipidemia: Status: Acute Assessment and plan: cw lipitor 40mg daily. Will await Neuro recommendations to see if they recommend maximizing. (10) GERD (gastroesophageal reflux disease): Status: Chronic Assessment and plan: c/w omeprazole 20mg daily History of Present Illness History of Present Illness Chief Complaint: BLE weakness Narrative: This is a 74-year-old female who presents to the ED today with signs and symptoms consistent with a CVA. Patient came in with left-sided weakness that started around 5:00 this evening and both her left upper and lower extremities. Also complained of headache at this time. By the time she arrived in the ED her symptoms had completely resolved therefore did not get any thrombolytics. The case was discussed with teleneurology Dr. Duran who recommended a loading dose of Plavix 375 daily as well as a MRI and possible echocardiogram. Per my discussion with the patient, she states that she does have dye allergy and therefore CT angiogram was not performed. The plan was discussed with the family which include her and the plan was to admit for the above-mentioned studies. Patient denies any history of tobacco use or alcohol use. Patient is unsure if she is ever had a screening echocardiogram before. Patient states she takes her medications as prescribed. I have reviewed her lab work which does show an elevated MCV as well as an elevated BUN to creatinine ratio, TSH at 8.07 and free T4.93, hematuria, positive leukocyte nitrate urine. Patient is asymptomatic. CT does show possible CVA. EKG within normal limits. Review of Systems All systems reviewed & are unremarkable except as noted in HPI and below PFSH All Active Problems (Updated 09/22/24 @ 20:49 by Rodney Bean MD) GERD (gastroesophageal reflux disease) (Chronic) Dyslipidemia (Acute) Epilepsy (Acute) Hypertension (Chronic) UTI (urinary tract infection) (Acute) Elevated troponin (Acute) Elevated TSH (Acute) Elevated MCV (Acute) CVA (cerebral vascular accident) (Chronic) Acute UTI (Acute) Brain TIA (Acute) Coronary artery disease, non-occlusive (Chronic) Atretic LAD. 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) Memory loss (Chronic) GERD (gastroesophageal reflux disease) (Chronic) Hyperlipidemia (Chronic) Osteoporosis (Chronic) Alendronate started 10/2019, DEXA 10/2019 Chronic suppurative otitis media of left ear (Chronic) Chronic eczematoid otitis externa of both ears (Chronic) Chronic bacterial otitis externa of left ear (Chronic) Sensorineural hearing loss, bilateral (Chronic) 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) Atopic dermatitis (Chronic) Allergic rhinitis (Chronic) Medical History Depressive disorder Prediabetes NSTEMI (non-ST elevated myocardial infarction) (~2011) Former cigarette smoker 23pack-yr hx 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 (~09/2017) To left lateral thigh Tubular adenoma of colon (~07/18/21) Migraine headache without aura (02/01/15) Non-ischemic cardiomyopathy Surgical History History of colonoscopy with polypectomy (07/18/21) [place] of left [place]oide[place] [facility] [place] of tonsillectomy and adenoidectomy History of arthroplasty of right shoulder History of revision of total replacement of right hip joint (01/03/16) S/P appendectomy S/P colonoscopy (07/18/21) 11/18/15 07/18/21 [place] S/P left oophorectomy (~1988) S/P laparoscopic hysterectomy (~1988) S/P right oophorectomy (~1969) Status post total hip replacement, 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 Brother Hypertension Heart attack Brother Hypertension Type 2 diabetes mellitus Brother No problems noted. Son Epilepsy Son No problems noted. Son No problems noted. Son No problems noted. Daughter No problems noted. Maternal Grandfather No problems noted. Maternal Grandmother No problems noted. Paternal Grandfather No problems noted. Paternal Grandmother No problems noted. Social History Smoking/Tobacco Use Status: Never Smoking risk assessment performed?: Yes Alcohol Intake: never Drug use: Never Substance use type: does not use Adopted: No Household members: spouse Housing: house current occupation: HOUSEWIFE Pets and animals: No What is your relationship status?: How often do you talk on the phone with friends or family?: never Panel score (0-1 are the most socially isolated patients): 1 Seatbelt use: always Drive intox or ride w/intox cmv driver: No Do you feel safe at home: Yes Do you feel safe in your relationship?: Yes Female Reproductive History Menstrual Menopause type: surgical History History 5 Para 5 Hx # Term Pregnancies Multiple births Hx # Pregnancies Ectopic pregnancies AB induced Hx Number of Living Children 5 AB spontaneous Meds Allergies and Home Medications Allergies Allergy/AdvReac Type Severity Reaction Status Date / Time Penicillins Allergy Severe Anaphylaxis Verified 09/22/24 18:12 Sulfa (Sulfonamide Allergy Severe Anaphylaxis Verified 09/22/24 18:12 Antibiotics) IODINE DYES Allergy Severe Anaphylaxis Uncoded 09/22/24 18:12 Home Medications ?Medication ?Instructions ?Recorded ?Confirmed ?Type multivitamin (Daily Multi-Vitamin 1 tab PO DAILY 11/24/17 12/24/23 History tablet) calcium carbonate (Calcium 600) 600 mg PO DAILY 07/19/20 12/24/23 History aspirin 81 mg tablet,delayed 81 mg PO DAILY 12/03/20 12/24/23 History release mometasone 0.1 % topical ointment 1 applic topical .qod #15 grams 05/29/21 12/24/23 Rx atorvastatin 40 mg tablet (Lipitor) 40 mg PO DAILY #90 tabs 09/06/23 12/24/23 Rx bisoprolol fumarate 5 mg tablet 5 mg PO DAILY #90 tabs 09/06/23 12/24/23 Rx lamotrigine 100 mg tablet 100 mg PO BID #180 tabs 10/06/23 12/24/23 Rx alendronate 70 mg tablet (Fosamax) 70 mg PO QWEEK #15 tabs 10/25/23 12/24/23 Rx omeprazole 20 mg capsule,delayed 20 mg PO DAILY #90 caps 06/08/24 Rx release memantine 10 mg tablet 10 mg PO BID #180 tabs 07/14/24 Rx Exam Narrative Exam Narrative: HEENT-normocephalic atraumatic mucous membranes moist oropharynx is clear extract motions are intact Neck-no lymphadenopathy no JVD no thyromegaly Cardiovascular-no murmur rubs or gallops regular rate and rhythm Pulm-clear to auscultation bilaterally good air exchange no accessory muscle use Abdomen-soft nontender nondistended bowel sounds active Extremities-5 out of 5 upper and lower extremity on the right is 4-5 left lower extremity weakness. Neurologic-cranial nerves II through XII intact as tested reflexes in upper lower extremity normal as tested no focal deficits Psych-alert and oriented x 3 no apparent distress Constitution 74-year-old female appears her stated age with appropriate muscle mass Results Labs 09/22/24 18:18 09/22/24 18:18 Labs: Laboratory Results - last 24 hr 09/22/24 09/22/24 09/22/24 18:18 18:50 19:18 WBC 6.56 RBC 4.24 Hgb 13.3 Hct 41.1 MCV 97 H MCH 31.4 MCHC 32.4 RDW 12.6 Plt Count 132 MPV 10.3 Immature Gran % 0.3 Neutrophils % 74.9 Lymphocytes % 17.2 Monocytes % 5.9 Eosinophils % 1.5 Basophils % 0.2 Nucleated RBC % 0.0 Absolute Neutrophils 4.91 Absolute Lymphocytes 1.13 L Absolute Monocytes 0.39 Absolute Eosinophils 0.10 Absolute Basophils 0.01 PT 10.2 INR 1.0 APTT 24.3 VBG pH 7.38 VBG pCO2 48 VBG pO2 29 VBG HCO3 28 VBG Total CO2 26 VBG O2 Saturation 55 VBG Base Excess 3 Sodium 144 Potassium 4.3 Chloride 107 Carbon Dioxide 29.2 Anion Gap 7.8 BUN 15 Creatinine 1.0 Est GFR (CKD-EPI 2020) 59.12 Glucose 108 H Calcium 9.4 Total Bilirubin 0.4 AST 27 ALT 33 Alkaline Phosphatase 122 H Troponin I 95 H* 99 H* Total Protein 6.9 Albumin 3.4 TSH 8.07 H Free T4 0.93 Urine Color Yellow Urine Clarity Clear Urine pH 7.0 Ur Specific [place] 1.010 Urine Protein Negative Urine Ketones Negative Urine Blood Small H Urine Nitrite Positive H Urine Bilirubin Negative Urine Urobilinogen 0.2 Ur Leukocyte Esterase Small H Urine RBC 0-2 Urine WBC 0-2 Ur Epithelial Cells Rare Urine Crystals Negative Urine Bacteria Many Urine Casts Negative Urine Mucus Negative Ur Culture Indicated? No Urine Glucose Negative Last Vital Signs Pulse 63 09/22/24 18:50 Resp 14 09/22/24 18:50 BP 184/81 H 09/22/24 18:46 Pulse Ox 97 09/22/24 18:50 Time Spent Time spent with Patient: 40-54 minutes Time was spent: preparing to see the patient(eg.review tests), obtaining and/or reviewing separately otained hiistory, ordering medications,tests, procedures, referring, communicating with other health small animal caretaker, indepentently interpreting results, counseling the patient and care coordination
--- NOTE | 2024-09-22 21:26 | W.PC.ACHO ---
Registration Status: REG ER Primary Language: Preferred Language: Persian ED Information & Data Chief Complaint CVA/TIA 09/22/24 20:02 Triage Note LKW approx 1645 - with 09/22/24 18:06 family lightheaded, had weakness in left arm immediate after headache began, feels like she just cant hold self up. 250ml NS prior to arrival Medical / Surgical History (Last Reviewed 10/06/23 @ 10:08 by Priyanka Huff MD) Depressive disorder Prediabetes NSTEMI (non-ST elevated myocardial infarction) (~2011) Former cigarette smoker Paraganglioma (04/04/13) [place] lesion (~09/2017) Tubular adenoma of colon (~07/18/21) Migraine headache without aura (02/01/15) Non-ischemic cardiomyopathy (Last Reviewed 10/06/23 @ 10:08 by Priyanka Huff MD) History of colonoscopy with polypectomy (07/18/21) History of left mastoidectomy History of tonsillectomy and adenoidectomy History of arthroplasty of right shoulder History of revision of total replacement of right hip joint (01/03/16) S/P appendectomy S/P colonoscopy (07/18/21) S/P left oophorectomy (~1988) S/P laparoscopic hysterectomy (~1988) S/P right oophorectomy (~1969) Status post total hip replacement, 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) Most Recent Vital Signs Pulse 63 09/22/24 18:50 Pulse 63 09/22/24 18:50 Respiratory Rate 14 09/22/24 18:50 Respiratory Effort Non-Labored 09/22/24 18:58 Respiratory Depth Normal 09/22/24 18:58 Respiratory Pattern Normal 09/22/24 18:58 Blood Pressure 184/81 H 09/22/24 18:46 Blood Pressure Mean 117 09/22/24 18:46 Pulse Oximetry 97 09/22/24 18:50 Oxygen Delivery Method Room Air 09/22/24 18:06 Oxygen Flow Rate 0 09/22/24 18:06 Allergies Penicillins Allergy (Severe, Verified 09/22/24 18:12) Anaphylaxis anaphylaxis, feels like a ton of bricks on her chest Sulfa (Sulfonamide Antibiotics) Allergy (Severe, Verified 09/22/24 18:12) Anaphylaxis IODINE DYES Allergy (Severe, Uncoded 09/22/24 18:12) Anaphylaxis Diet Orders Category Date Time Status Regular/Normal [DIET] Nutrition 09/23/24 Breakfast Ordered Diagnostics 09/22/24 09/22/24 09/22/24 Range/Units 22:01 21:12 21:01 WBC (4.4-10.8) 10^3/uL RBC (3.93-5.22) 10^6/uL Hgb (11.2-15.7) g/dL Hct (36.0-46.0) % MCV (80-95) fL MCH (27.0-33.0) pg MCHC (32.0-36.0) % RDW (11.7-14.6) % Plt Count (130-400) 10^3/uL MPV (8.0-11.0) fL Immature Gran % % Neutrophils % % Lymphocytes % % Monocytes % % Eosinophils % % Basophils % % Nucleated RBC % (0.0-0.3) % Absolute Neutrophils (1.2-6.7) 10^3/uL Absolute Lymphocytes (1.2-3.4) 10^3/uL Absolute Monocytes (0.1-0.8) 10^3/uL Absolute Eosinophils (0.0-0.7) 10^3/uL Absolute Basophils (0.0-0.2) 10^3/uL PT (9.1-11.1) sec INR (0.9-1.1) APTT (20.6-30.2) sec VBG pH (7.31-7.41) VBG pCO2 (41-51) mmHg VBG pO2 mmHg VBG HCO3 (23-28) mmol/L VBG Total CO2 (24-29) mmol/L VBG O2 Saturation % VBG Base Excess (-2-3) mmol/L Sodium (136-145) mmol/L Potassium (3.5-5.1) mmol/L Chloride (98-107) mmol/L Carbon Dioxide (21.0-32.0) mmol/L Anion Gap (3-11) mmol/L BUN (7-18) mg/dL Creatinine (0.55-1.02) mg/dL Est GFR (CKD-EPI 2020) (mL/min/1.73m2) Glucose (74-106) mg/dL Calcium (8.5-10.1) mg/dL Total Bilirubin (0.2-1.0) mg/dL AST (15-37) U/L ALT (14-59) U/L Alkaline Phosphatase (46-116) U/L Troponin I Pending Pending Pending (<or=51) ng/L Total Protein (6.4-8.2) g/dL Albumin (3.4-5.0) g/dL TSH (0.36-3.74) uIU/mL Free T4 (0.76-1.46) ng/dL Urine Color (Yellow) Urine Clarity (Clear) Urine pH (5-8) Ur Specific [place] (1.005-1.025) Urine Protein (Neg-Trace) mg/dL Urine Ketones (Negative) mg/dL Urine Blood (Negative) Urine Nitrite (Negative) Urine Bilirubin (Negative) Urine Urobilinogen (Up to 0.2) mg/dL Ur Leukocyte Esterase (Negative) Urine RBC (0-2) HPF Urine WBC (0-5) HPF Ur Epithelial Cells (Negative) HPF Urine Crystals (Negative) HPF Urine Bacteria (Negative) HPF Urine Casts (Negative) LPF Urine Mucus (Negative) Ur Culture Indicated? Urine Glucose (Negative) mg/dL 09/22/24 09/22/24 09/22/24 Range/Units 19:18 18:50 18:18 WBC 6.56 (4.4-10.8) 10^3/uL RBC 4.24 (3.93-5.22) 10^6/uL Hgb 13.3 (11.2-15.7) g/dL Hct 41.1 (36.0-46.0) % MCV 97 H (80-95) fL MCH 31.4 (27.0-33.0) pg MCHC 32.4 (32.0-36.0) % RDW 12.6 (11.7-14.6) % Plt Count 132 (130-400) 10^3/uL MPV 10.3 (8.0-11.0) fL Immature Gran % 0.3 % Neutrophils % 74.9 % Lymphocytes % 17.2 % Monocytes % 5.9 % Eosinophils % 1.5 % Basophils % 0.2 % Nucleated RBC % 0.0 (0.0-0.3) % Absolute Neutrophils 4.91 (1.2-6.7) 10^3/uL Absolute Lymphocytes 1.13 L (1.2-3.4) 10^3/uL Absolute Monocytes 0.39 (0.1-0.8) 10^3/uL Absolute Eosinophils 0.10 (0.0-0.7) 10^3/uL Absolute Basophils 0.01 (0.0-0.2) 10^3/uL PT 10.2 (9.1-11.1) sec INR 1.0 (0.9-1.1) APTT 24.3 (20.6-30.2) sec VBG pH 7.38 (7.31-7.41) VBG pCO2 48 (41-51) mmHg VBG pO2 29 mmHg VBG HCO3 28 (23-28) mmol/L VBG Total CO2 26 (24-29) mmol/L VBG O2 Saturation 55 % VBG Base Excess 3 (-2-3) mmol/L Sodium 144 (136-145) mmol/L Potassium 4.3 (3.5-5.1) mmol/L Chloride 107 (98-107) mmol/L Carbon Dioxide 29.2 (21.0-32.0) mmol/L Anion Gap 7.8 (3-11) mmol/L BUN 15 (7-18) mg/dL Creatinine 1.0 (0.55-1.02) mg/dL Est GFR (CKD-EPI 2020) 59.12 (mL/min/1.73m2) Glucose 108 H (74-106) mg/dL Calcium 9.4 (8.5-10.1) mg/dL Total Bilirubin 0.4 (0.2-1.0) mg/dL AST 27 (15-37) U/L ALT 33 (14-59) U/L Alkaline Phosphatase 122 H (46-116) U/L Troponin I 99 H* 95 H* (<or=51) ng/L Total Protein 6.9 (6.4-8.2) g/dL Albumin 3.4 (3.4-5.0) g/dL TSH 8.07 H (0.36-3.74) uIU/mL Free T4 0.93 (0.76-1.46) ng/dL Urine Color Yellow (Yellow) Urine Clarity Clear (Clear) Urine pH 7.0 (5-8) Ur Specific [place] 1.010 (1.005-1.025) Urine Protein Negative (Neg-Trace) mg/dL Urine Ketones Negative (Negative) mg/dL Urine Blood Small H (Negative) Urine Nitrite Positive H (Negative) Urine Bilirubin Negative (Negative) Urine Urobilinogen 0.2 (Up to 0.2) mg/dL Ur Leukocyte Esterase Small H (Negative) Urine RBC 0-2 (0-2) HPF Urine WBC 0-2 (0-5) HPF Ur Epithelial Cells Rare (Negative) HPF Urine Crystals Negative (Negative) HPF Urine Bacteria Many (Negative) HPF Urine Casts Negative (Negative) LPF Urine Mucus Negative (Negative) Ur Culture Indicated? No Urine Glucose Negative (Negative) mg/dL Intake and Output - 24 Hour Total 09/22/24 17:54 thru 09/22/24 18:06 Weight 98.2 kg Falls Risk Assessment History of Falls Previous History 09/22/24 18:56 Contributing Factors Impairments 09/22/24 18:56 Ambulatory Aids Uses ambulatory device 09/22/24 18:56 Fall Total Score 33 09/22/24 18:56 Level of Risk Moderate Risk 09/22/24 18:56 Problems (Last Reviewed 10/06/23 @ 10:08 by Priyanka Huff MD) GERD (gastroesophageal reflux disease) (Chronic) Dyslipidemia (Acute) Epilepsy (Acute) Hypertension (Chronic) UTI (urinary tract infection) (Acute) Elevated troponin (Acute) Elevated TSH (Acute) Elevated MCV (Acute) CVA (cerebral vascular accident) (Chronic) Coronary artery disease, non-occlusive (Chronic) v v v v v v v v v Sending and/or Receiving Nurses: Please use comment section below to note any information pertinent to the patient hand-off not included above. Information / Comments: Numbness and tingling sensation prior to arrival is now resolved. Alert and oriented, bilat eye ERIN, lungs diminished lower lobes, vital signs - BP 140/54, HR 65 bpm normal sinus rhythm, RR 20, O2 sat 94% on room air, BLE weakness, good hand cash teller. Report received from: Shannan Mendosa RN
[2024-09-22 21:46] LABS: Troponin I 102 ng/L (<or=51)
[2024-09-22] MEDS: Memantine 5 MG TAB 10 MG PO (22:41)
[2024-09-22] MEDS: Normal Saline Flush 10 ML SYR IVP (22:42)
[2024-09-22] MEDS: Enoxaparin 40 MG/0.4 ML SYR SC (22:43)
[2024-09-22 22:54] LABS: Troponin I 110 ng/L (<or=51)
[2024-09-22] MEDS: lamoTRIgine 100 MG TAB PO (23:18)
[2024-09-22] MEDS: Acetaminophen 325 MG TAB PO (23:23)
[2024-09-23 00:52] LABS: Troponin I 103 ng/L (<or=51)
[2024-09-23 03:00] VITALS: BP 134/55; PULSE 56; RESP 15; TEMP 36.6; O2SAT 98
[2024-09-23 06:52] LABS: Abs Immature Grans 0.01 10^3/uL (0.0-0.06); HCT 37.7 % (36.0-46.0); HGB 12.3 g/dL (11.2-15.7); Immature Grans % 0.2 %; MCH 31.7 pg (27.0-33.0); MCHC 32.6 % (32.0-36.0); MCV 97 fL (80-95); MPV 10.3 fL (8.0-11.0); Platelet Count 113 10^3/uL (130-400); RBC 3.88 10^6/uL (3.93-5.22); RDW 12.7 % (11.7-14.6); RDW-SD 44.8 fL; WBC 6.13 10^3/uL (4.4-10.8)
[2024-09-23 07:05] LABS: Iron 67 ug/dL (50-170); Total Iron Binding Capacity 214 ug/dL (250-450); Transferrin Sat 31 % (15-50)
[2024-09-23 07:10] LABS: ALT 27 U/L (14-59); AST 25 U/L (15-37); Albumin 3.0 g/dL (3.4-5.0); Alkaline Phosphatase 109 U/L (46-116); Anion Gap 7.3 mmol/L (3-11); BUN 14 mg/dL (7-18); Bilirubin, Total 0.5 mg/dL (0.2-1.0); CO2 29.7 mmol/L (21.0-32.0); Calcium 9.0 mg/dL (8.5-10.1); Chloride 110 mmol/L (98-107); Estimated GFR 59.12 (mL/min/1.73m2); Glucose 93 mg/dL (74-106); Potassium 4.1 mmol/L (3.5-5.1); Sodium 147 mmol/L (136-145); Total Protein 6.1 g/dL (6.4-8.2)
[2024-09-23 07:21] LABS: Troponin I 109 ng/L (<or=51)
[2024-09-23 07:28] VITALS: BP 124/68; PULSE 58; RESP 16; TEMP 36.2; O2SAT 95
[2024-09-23 07:31] LABS: Vitamin B12 298 pg/mL (193-986)
[2024-09-23 07:32] LABS: Folate > 20.0 ng/mL (8.6-20.0)
[2024-09-23] MEDS: Omeprazole 20 MG CAPCR PO (08:01)
[2024-09-23] MEDS: lamoTRIgine 100 MG TAB PO ×2 (08:01→20:41)
[2024-09-23] MEDS: Multivitamin TAB 1 TAB PO (08:02)
[2024-09-23] MEDS: Aspirin E.C. 81 MG TABEC PO (08:02)
[2024-09-23] MEDS: Bisoprolol 5 MG TAB PO (08:02)
[2024-09-23] MEDS: Calcium Carbonate 1.5 GM TAB PO (08:02)
[2024-09-23] MEDS: Atorvastatin 40 MG TAB PO ×2 (08:02→14:13)
[2024-09-23] MEDS: Memantine 5 MG TAB 10 MG PO ×2 (08:02→20:41)
[2024-09-23] MEDS: Normal Saline Flush 10 ML SYR IVP ×2 (08:09→20:42)
[2024-09-23] MEDS: Acetaminophen 325 MG TAB PO ×3 (08:24→20:41)
--- NOTE | 2024-09-23 11:12 | PT.INIE ---
PT Notes Visit Reasons: cva Inpatient Physical Therapy Evaluation Date: 09/23/24 Referring Doctor: Dr. Bean PT Orders: PT CONSULT Precautions: Standard, Fall Patient Profile/Admitting Diagnosis: CVA vs TIA PMHX: History of kidney disease, hypertension Subjective: Pt states she lives in [place] with her . She normally is fairly functional with her mobility but admits to using a rollator a lot of the time. She has 3 steps to enter but does have a ramp as an option to avoid the stairs. She has not had any falls within the past [address]. She does not normally leave her home. She states that she was admitted after feeling weaknesses within the left side of her body yesterday afternoon. She has not walked since coming into the hospital. Objective: General Observation: well-appearing, sitting up at EOB Mental Status: A+Ox3 Pain: Denies pain at this time Vital Signs: monitored by nursing ROM: WFL throughout bilat UE and LEs Strength: RUE: grossly 4+/5 LUE: grossly 4+/5 RLE: 4/5 for hip flex, 5/5 for knee ext and ankle DF LLE: 4+/5 for hip flex, 5/5 for knee ext and ankle DF Sensation: Full sensation throughout bilat LEs Bed Mobility/Transfers: supine to sitting w/SBA sitting to supine w/SBA sit to stand w/CGA stand to sit w/CGA Gait: Ambulates 20 ft throughout room w/CGA and use of RW - small steps and slow gait speed observed but upright posture Balance: Able to perform feet together stance and semi tandem stance for 10 seconds each, unable to perform marching without UE support Special Tests: Mobility Limitations Standardized Measure [facility] AM-PAC 6 clicks Basic Mobility Inpatient Short Form: Raw Score: 17 CMS Score: 50.57% Informed Consent/Education: Patient instructed in purpose of PT consult and plan of care. Assessment: Pt is not currently demonstrating any L sided weakness but is ambulating and functioning below her baseline. She had a difficult time with ambulation of 20 ft today as her gait speed was slow and her step length was short. She is likely able to return home safely when medically cleared, as she has a supportive and a ramp to enter, but a referral for home health PT is recommended to allow her to get stronger and progress with her overall function and mobility. She agrees to this plan. Patient is assessed as a [x] Low 48099 complexity based on the following: History: Low Examination: Low Presentation: Low Decision Making: Low Goals: Goals X1 week 1. Supine-Sit independently 2. Sit-Supine independently 3. Sit-Stand independently 4. Stand-Sit independently 5. Bed-Chair independently 6. Chair-Bed independently 7. Gait >50 ft w/RW and SBA Plan of Care/Treatment Plan: 1-2x/day, 7 days/week x 1 week. Plan of care has been reviewed with the COAT PADDER providing the service under Physical Therapy direction. Initiate Physical Therapy intervention for strengthening, bed mobility, transfers, gait, stairs, balance training, use of assistive device. DISCHARGE RECOMMENDATIONS: Home with home health PT [x] Home with home health PT TREATMENT CODE/TIME: Jose G Pitt ([id number]) x1 - 22 minutes
[2024-09-23 11:57] VITALS: BP 143/76; PULSE 57; RESP 16; TEMP 36.1; O2SAT 95
--- NOTE | 2024-09-23 11:58 | PGE_ITS ---
Date of Service Date of service: 09/23/24 Time of Service: 11:58 Assessment and Plan Assessment and plan (1) CVA (cerebral vascular accident): Status: Chronic Assessment and plan: Admitted for stroke workup , left sided weakness which has now resolved. MRI and echo with bubble study. carotid US Consult PT with recommendations for home health PT Continue dual antiplatelet therapy for 21 days High-dose statin Allow for permissive htn for the first 12-24 hours, blood pressures have been well-controlled 120s to 140s systolic over 70s Add lipid panel and A1c (2) Coronary artery disease, non-occlusive: Status: Chronic Assessment and plan: No chest pain no acute ischemic EKG changes. Elevated and flat troponins of unknown significance Continue with medical management including lipitor, beta-melinda and asa No further surveillance at this time refer further cardiology workup to outpatient team Echocardiogram is pending as part of stroke workup (3) Elevated MCV: Status: Acute Assessment and plan: check fe/tibc/b12/folate for mixed d/o anemia (4) Elevated TSH: Status: Acute Assessment and plan: TSH 8.07 with low normal FT4. Consider synthroid supplementation but can defer to outpatient setting (5) Elevated troponin: Status: Acute Assessment and plan: asymptomatic with nonischemic EKG. No further surveillance indicated at this time (6) UTI (urinary tract infection): Status: Acute Assessment and plan: Urine growing greater than 100,000 colony of gram-negative rods Patient does not have symptoms of urinary tract infection Will await ID and sensitivities and downstep ceftriaxone day 1 (7) Hypertension: Status: Chronic Assessment and plan: as above, allow for permissive htn for now. Pt on bisoprolol 5mg daily. (8) Epilepsy: Status: Acute Assessment and plan: pt on lamictal. lamictal level pending. No s/s of seizure activity currently (9) Dyslipidemia: Status: Acute Assessment and plan: lipitor 40mg daily. Will await Neuro recommendations to see if they recommend maximizing. (10) GERD (gastroesophageal reflux disease): Status: Chronic Assessment and plan: omeprazole 20mg daily discussed with DR Martinez Subjective Subjective Patient reports: no new complaints, tolerating liquids well, tolerating a regular diet and afebrile; denies shortness of breath Exam Narrative Exam Narrative: White female of stated age no acute distress sitting up on the edge of her bed head is atraumatic eyes nonicteric noninjected facial features symmetrical neck with full range of motion cardiovascular regular rate and rhythm respirations even and unlabored abdomen round soft nontender moves all extremities equally strength bilaterally 5 out of 5 neurologic she is awake alert oriented no focal deficits psychiatric appropriate mood and affect Objective Last Vital Signs Temp 36.2 C L 09/23/24 07:28 Pulse 58 L 09/23/24 07:28 Resp 16 09/23/24 07:28 BP 124/68 09/23/24 07:28 Pulse Ox 95 09/23/24 07:28 Laboratory Results - last 24 hr 09/22/24 09/22/24 09/22/24 18:18 18:50 19:18 WBC 6.56 RBC 4.24 Hgb 13.3 Hct 41.1 MCV 97 H MCH 31.4 MCHC 32.4 RDW 12.6 Plt Count 132 MPV 10.3 Immature Gran % 0.3 Neutrophils % 74.9 Lymphocytes % 17.2 Monocytes % 5.9 Eosinophils % 1.5 Basophils % 0.2 Nucleated RBC % 0.0 Absolute Neutrophils 4.91 Absolute Lymphocytes 1.13 L Absolute Monocytes 0.39 Absolute Eosinophils 0.10 Absolute Basophils 0.01 PT 10.2 INR 1.0 APTT 24.3 VBG pH 7.38 VBG pCO2 48 VBG pO2 29 VBG HCO3 28 VBG Total CO2 26 VBG O2 Saturation 55 VBG Base Excess 3 Sodium 144 Potassium 4.3 Chloride 107 Carbon Dioxide 29.2 Anion Gap 7.8 BUN 15 Creatinine 1.0 Est GFR (CKD-EPI 2020) 59.12 Glucose 108 H Calcium 9.4 Iron TIBC Transferrin % Sat Total Bilirubin 0.4 AST 27 ALT 33 Alkaline Phosphatase 122 H Troponin I 95 H* 99 H* Total Protein 6.9 Albumin 3.4 Vitamin B12 Folate TSH 8.07 H Free T4 0.93 Urine Color Yellow Urine Clarity Clear Urine pH 7.0 Ur Specific [place] 1.010 Urine Protein Negative Urine Ketones Negative Urine Blood Small H Urine Nitrite Positive H Urine Bilirubin Negative Urine Urobilinogen 0.2 Ur Leukocyte Esterase Small H Urine RBC 0-2 Urine WBC 0-2 Ur Epithelial Cells Rare Urine Crystals Negative Urine Bacteria Many Urine Casts Negative Urine Mucus Negative Ur Culture Indicated? No Urine Glucose Negative 09/22/24 09/22/24 09/22/24 21:01 21:15 22:26 WBC RBC Hgb Hct MCV MCH MCHC RDW Plt Count MPV Immature Gran % Neutrophils % Lymphocytes % Monocytes % Eosinophils % Basophils % Nucleated RBC % Absolute Neutrophils Absolute Lymphocytes Absolute Monocytes Absolute Eosinophils Absolute Basophils PT INR APTT VBG pH VBG pCO2 VBG pO2 VBG HCO3 VBG Total CO2 VBG O2 Saturation VBG Base Excess Sodium Potassium Chloride Carbon Dioxide Anion Gap BUN Creatinine Est GFR (CKD-EPI 2020) Glucose Calcium Iron TIBC Transferrin % Sat Total Bilirubin AST ALT Alkaline Phosphatase Troponin I Cancelled 102 H* 110 H* Total Protein Albumin Vitamin B12 Folate TSH Free T4 Urine Color Urine Clarity Urine pH Ur Specific [place] Urine Protein Urine Ketones Urine Blood Urine Nitrite Urine Bilirubin Urine Urobilinogen Ur Leukocyte Esterase Urine RBC Urine WBC Ur Epithelial Cells Urine Crystals Urine Bacteria Urine Casts Urine Mucus Ur Culture Indicated? Urine Glucose 09/23/24 09/23/24 00:20 06:17 WBC 6.13 RBC 3.88 L Hgb 12.3 Hct 37.7 MCV 97 H MCH 31.7 MCHC 32.6 RDW 12.7 Plt Count 113 L MPV 10.3 Immature Gran % 0.2 Neutrophils % 69.3 Lymphocytes % 21.2 Monocytes % 7.8 Eosinophils % 1.3 Basophils % 0.2 Nucleated RBC % 0.0 Absolute Neutrophils 4.25 Absolute Lymphocytes 1.30 Absolute Monocytes 0.48 Absolute Eosinophils 0.08 Absolute Basophils 0.01 PT INR APTT VBG pH VBG pCO2 VBG pO2 VBG HCO3 VBG Total CO2 VBG O2 Saturation VBG Base Excess Sodium 147 H Potassium 4.1 Chloride 110 H Carbon Dioxide 29.7 Anion Gap 7.3 BUN 14 Creatinine 1.0 Est GFR (CKD-EPI 2020) 59.12 Glucose 93 Calcium 9.0 Iron 67 TIBC 214 L Transferrin % Sat 31 Total Bilirubin 0.5 AST 25 ALT 27 Alkaline Phosphatase 109 Troponin I 103 H* 109 H* Total Protein 6.1 L Albumin 3.0 L Vitamin B12 298 Folate > 20.0 H TSH Free T4 Urine Color Urine Clarity Urine pH Ur Specific [place] Urine Protein Urine Ketones Urine Blood Urine Nitrite Urine Bilirubin Urine Urobilinogen Ur Leukocyte Esterase Urine RBC Urine WBC Ur Epithelial Cells Urine Crystals Urine Bacteria Urine Casts Urine Mucus Ur Culture Indicated? Urine Glucose Time Spent with Patient Time Spent with Patient: 35-49 minutes Time was spent: preparing to see the patient(eg.review tests), obtaining and/or [facility], ordering medications,tests, procedures, indepentently interpreting results and counseling the patient
[2024-09-23 12:42] LABS: Lab Add On Test DONE
[2024-09-23 12:47] LABS: Calculated LDL 48 mg/dL (<100); Cholesterol 108 mg/dL (<200); HDL Cholesterol 42 mg/dL (>or=50); Hemoglobin A1C 5.7 % (<5.7); Triglyceride 90 mg/dL (<150)
[2024-09-23] MEDS: cefTRIAXone 1 GM/50 ML BAG IVPB (14:14)
[2024-09-23 15:25] VITALS: BP 113/58; PULSE 61; RESP 16; TEMP 36.2; O2SAT 94
--- NOTE | 2024-09-23 16:57 | PDOC.CMIN ---
Date of service: 09/23/24 Time of Service: 16:57 Care Management Initial Assmt Initial Assessment Reason for Hospitalization: CVA Functional Status/Living Situation Patient Presentation: Dorothy was sitting up in bed visiting with her Jagdish when CM met with her. She was alert and oriented and agreeable to conversatio. Tj was admitted with a CVA vs Tia. Last evening she experienced left sided weakness and tingling and a headache. She came to the ED where her symptoms resolved. She was hypertensive however and the headache persists. Dorothy lives in a double wide mobile home in [facility]. She and Jagdish have 5 children and many grandchildren. Three of their children live in [place] and the other 2 live out of state. The grandchildren are scattered around the country she reported. Dorothy has not worked outside the home for many years, having raised 5 children. She is independent at baseline and does not receive any community services. Town of Residence: [facility] Resides with: Spouse ( Jagdish) Significant Other/Family: Out of area (children and grandchildren live in various parts of the [facility].) Employment Status: Unemployed Instrumental Activities of Daily Living (ADLs): Independent Physical Functioning/Mobility Assistive Device: occasionally uses cane or walker Advance Directives Advance Directives: Do you have an Advance Directive: N 12/03/20, 09:35 AD On File at [facility]: N 12/03/20, 09:35 Date Asked 09/22/24 09/22/24, 20:13 AD Date Reviewed COLST On File at [facility] Yes 07/14/21, 15:16 COLST Date Scanned 10/25/20 07/14/21, 15:16 Code Status Resuscitation Status DNR Insurance Coverage/Financial Issues Insurance: BC/BS [facility] Ad[facility] Care Team Visit Care Team Role Provider Type Magdalena Crowder NP NURSE PRACTITIONER Lorelei Ferguson NP Primary Care Provider NURSE PRACTITIONER InPatient Jose Woods Other Providers OTHER Gregorio Torres DO Emergency Provider [facility] STAFF PHYSICIAN Rodney Bean MD Admit Provider [facility] STAFF PHYSICIAN Attending Provider Discharge Potential Discharge Needs: PCP F/U Appt and Other (possible neurology consult) Anticipated Barriers to Discharge: None Identified Patient/Family Education Needs: Review discharge instructions, discuss Ask Me Three Transportation: Private vehicle Plan: Anticipate Dorothy will be discharged home with new orders for home health PT. She will follow up with her community providers and plan of care and transport with her . CM will follow. Social Determinants of Health Screening Social Determinants of health last assessed in clinic: 09/23/24 Will the Patient Participate in the Screening?: Yes Do you worry about having a steady place to live?: no Problems where you live: no known problems In the past 12 months, have you had to go without electric, gas, oil or water in your home?: no 1. Within the past 12 months, we worried whether our food would run out before we got money to buy more.: Never true 2. Within the past 12 months, the food we bought just didn't last and we didn't have money to get more.: Never true Has lack of transportation kept you from medical appointments or from doing things needed for daily living?: no Has anyone in your life made you feel unsafe or unsupported?: no How hard is it for you to pay for the very basics like food, housing, medical care, and heating? Would you say it is:: Not hard at all Do you want help finding or keeping work or a job?: I do not need or want help If for any reason you need help with day-to-day activities such as bathing, preparing meals, shopping, managing finances, etc., do you get the help you need?: I don?t need any help How often do you feel lonely or isolated from those around you?: Never Do you speak a language other than Frisian at home?: No Does the patient want assistance with any of the above?: No PFSH All Active Problems (Updated 09/22/24 @ 20:49 by Rodney Bean MD) GERD (gastroesophageal reflux disease) (Chronic) Dyslipidemia (Acute) Epilepsy (Acute) Hypertension (Chronic) UTI (urinary tract infection) (Acute) Elevated troponin (Acute) Elevated TSH (Acute) Elevated MCV (Acute) CVA (cerebral vascular accident) (Chronic) Acute UTI (Acute) Brain TIA (Acute) Coronary artery disease, non-occlusive (Chronic) Atretic LAD. Cardiac cath at 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) Atopic dermatitis (Chronic) Allergic rhinitis (Chronic) Medical History Depressive disorder Prediabetes NSTEMI (non-ST elevated myocardial infarction) (~2011) Former cigarette smoker 23pack-yr hx 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 (~09/2017) To left lateral thigh Tubular adenoma of colon (~07/18/21) Migraine headache without aura (02/01/15) Non-ischemic cardiomyopathy Surgical History History of colonoscopy with polypectomy (07/18/21) History of left mastoidectomy With paraganglioma excision, [place], [place] [facility] [place] History of tonsillectomy and adenoidectomy History of arthroplasty of right shoulder History of revision of total replacement of right hip joint (01/03/16) S/P appendectomy S/P colonoscopy (07/18/21) 11/18/15 07/18/21 [place] S/P left oophorectomy (~1988) S/P laparoscopic hysterectomy (~1988) S/P right oophorectomy (~1969) Status post total hip replacement, 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 Brother Hypertension Heart attack Brother Hypertension Type 2 diabetes mellitus Brother No problems noted. Son Epilepsy Son No problems noted. Son No problems noted. Son No problems noted. Daughter No problems noted. Maternal Grandfather No problems noted. Maternal Grandmother No problems noted. Paternal Grandfather No problems noted. Paternal Grandmother No problems noted. Social History Smoking/Tobacco Use Status: Never Smoking risk assessment performed?: Yes Alcohol Intake: never Drug use: Never Substance use type: does not use Adopted: No Household members: spouse Housing: house current occupation: HOUSEWIFE Pets and animals: No What is your relationship status?: How often do you talk on the phone with friends or family?: never Panel score (0-1 are the most socially isolated patients): 1 Seatbelt use: always Drive intox or ride w/intox reach lift truck driver: No Do you feel safe at home: Yes Do you feel safe in your relationship?: Yes Female Reproductive History Menstrual Menopause type: surgical History History 5 Para 5 Hx # Term Pregnancies Multiple births Hx # Pregnancies Ectopic pregnancies AB induced Hx Number of Living Children 5 AB spontaneous
[2024-09-23 19:51] VITALS: BP 122/78; PULSE 57; RESP 20; TEMP 36.7; O2SAT 96
--- NOTE | 2024-09-23 21:56 | RESPIRATORY ---
Pt. has her own CPAP machine: THEO G3 for STAR[employer]. It's in good condition, intact breathing circuit. Setting: auto CPAP 12-16 thought [facility]. Pt. does not bleed in O2 at baseline.
[2024-09-23] MEDS: Enoxaparin 40 MG/0.4 ML SYR SC (22:03)
[2024-09-23 23:18] VITALS: BP 91/61; PULSE 55; RESP 20; TEMP 36.3; O2SAT 96
[2024-09-24 03:21] VITALS: BP 112/49; PULSE 63; RESP 20; TEMP 36; O2SAT 97
[2024-09-24 07:46] VITALS: BP 109/62; PULSE 60; RESP 18; TEMP 36.8; O2SAT 95
[2024-09-24] MEDS: Bisoprolol 5 MG TAB PO (08:27)
[2024-09-24] MEDS: Normal Saline Flush 10 ML SYR IVP ×2 (08:27→21:07)
[2024-09-24] MEDS: Calcium Carbonate 1.5 GM TAB PO (08:28)
[2024-09-24] MEDS: Multivitamin TAB 1 TAB PO (08:28)
[2024-09-24] MEDS: Atorvastatin 40 MG TAB 80 MG PO (08:28)
[2024-09-24] MEDS: Omeprazole 20 MG CAPCR PO (08:28)
[2024-09-24] MEDS: Aspirin E.C. 81 MG TABEC PO (08:28)
[2024-09-24] MEDS: lamoTRIgine 100 MG TAB PO ×2 (08:28→21:07)
[2024-09-24] MEDS: Memantine 5 MG TAB 10 MG PO ×2 (08:34→21:06)
--- NOTE | 2024-09-24 11:50 | W.PM.PROGNOT ---
Date of Service Date of service: 09/24/24 Time of Service: 11:50 Assessment and Plan Assessment and plan (1) CVA (cerebral vascular accident): Status: Chronic Assessment and plan: Admitted for stroke workup , left sided weakness which has now resolved. MRI and echo with bubble study. carotid US Consult PT with recommendations for home health PT Continue dual antiplatelet therapy for 21 days High-dose statin Allow for permissive htn for the first 12-24 hours, blood pressures have been well-controlled 120s to 140s systolic over 70s Add lipid panel and A1c (2) Coronary artery disease, non-occlusive: Status: Chronic Assessment and plan: No chest pain no acute ischemic EKG changes. Elevated and flat troponins of unknown significance Continue with medical management including lipitor, beta-melinda and asa No further surveillance at this time refer further cardiology workup to outpatient team Echocardiogram is pending as part of stroke workup (3) Elevated MCV: Status: Acute Assessment and plan: check fe/tibc/b12/folate for mixed d/o anemia (4) Elevated TSH: Status: Acute Assessment and plan: TSH 8.07 with low normal FT4. Consider synthroid supplementation but can defer to outpatient setting (5) Elevated troponin: Status: Acute Assessment and plan: asymptomatic with nonischemic EKG. No further surveillance indicated at this time (6) UTI (urinary tract infection): Status: Acute Assessment and plan: Urine growing greater than 100,000 colony of gram-negative rods Patient does not have symptoms of urinary tract infection Will await ID and sensitivities and downstep ceftriaxone day 1 (7) Hypertension: Status: Chronic Assessment and plan: Blood pressures have normalized since admission pt on bisoprolol 5mg daily. Continue routine monitoring (8) Epilepsy: Status: Acute Assessment and plan: pt on lamictal. lamictal level pending. No s/s of seizure activity currently (9) Dyslipidemia: Status: Acute Assessment and plan: High-dose statin (10) GERD (gastroesophageal reflux disease): Status: Chronic Assessment and plan: omeprazole 20mg daily discussed with DR Martinez Subjective Subjective Patient reports: no new complaints, feels better, tolerating liquids well, tolerating a regular diet and afebrile Interval history since last seen: Remains asymptomatic and at her baseline Exam Narrative Exam Narrative: White female of stated age no acute distress sitting up on the edge of her bed head is atraumatic eyes nonicteric noninjected facial features symmetrical neck with full range of motion cardiovascular regular rate and rhythm respirations even and unlabored abdomen round soft nontender moves all extremities equally strength bilaterally 5 out of 5 neurologic she is awake alert oriented no focal deficits psychiatric appropriate mood and affect Objective Last Vital Signs Temp 36.8 C 09/24/24 07:46 Pulse 60 09/24/24 07:46 Resp 18 09/24/24 07:46 BP 109/62 09/24/24 07:46 Pulse Ox 95 09/24/24 07:46 Laboratory Results - last 24 hr 09/23/24 09/23/24 06:17 Unknown Hemoglobin A1c 5.7 Triglycerides 90 Total Cholesterol 108 LDL Cholesterol, Calc 48 HDL Cholesterol 42 L Add-On Test Request DONE Time Spent with Patient Time Spent with Patient: 35-49 minutes Time was spent: preparing to see the patient(eg.review tests), obtaining and/or reviewing separately otained hiistory, ordering medications,tests, procedures, indepentently interpreting results and counseling the patient
--- NOTE | 2024-09-24 13:32 | PT.INTREAT ---
PT Notes Visit Reasons: cva Inpatient Physical Therapy Treatment Note [facility] Date: 09/24/24 PRECAUTIONS: N/A SUBJECTIVE: Pt states I feel back to normal. Denies any left sided weakness today OBJECTIVE: happy to work with PT today, appears excited ? PAIN: No pain noted VITALS: monitored by nursing Therapeutic Activities (46838b9): Direct one-on-one instruction in dynamic activities to improve functional performance. ? BED MOBILITY/TRANSFERS? Rolling L/R: independent Supine-sit: independent? Sit-supine: independent ? Sit-stand: independent ? Stand-sit: independent? Bed-Chair: SBA ? Chair-bed: SBA -Provided skilled cues and instruction on performance and technique throughout. AMBULATION ?-Able to ambulate 200 ft w/o AD and SBA - Trendelenburg observed during stance phase of RLE likely due to R DEN -Ascends/descends a set of 4 stairs w/bilat UE support on railings ? ASSESSMENT:? Pt did very well today and is back to her baseline. She was able to ambulate her normal distance and perform stairs. It is recommended that she continue to use a RW as she had increased sway and a [place] gait was observed during RLE stance phase. This increases her risk of falling but again this is likely her baseline. Her is home with her and able to assist her as needed. She may benefit from outpatient PT services for her baseline weaknesses and balance issues. She is now cleared by inpatient PT and can return home when medically cleared. PLAN: Cleared by inpatient PT TREATMENT CODE/TIME: Ther Act (48882) x1 - 18 min DISCHARGE RECOMMENDATION: D/c to home with an outpatient PT referral
[2024-09-24] MEDS: cefTRIAXone 1 GM/50 ML BAG IVPB (13:34)
[2024-09-24 15:18] VITALS: BP 127/55; PULSE 60; RESP 18; TEMP 36.5; O2SAT 96
[2024-09-24 20:33] VITALS: BP 125/85; PULSE 59; RESP 18; TEMP 36.6; O2SAT 95
[2024-09-24] MEDS: Enoxaparin 40 MG/0.4 ML SYR SC (21:08)
--- NOTE | 2024-09-25 | DI.US_ITS ---
Exam(s) US CAROTID EXAM: US CAROTID CLINICAL HISTORY: CVA work up, left sided weakness. TECHNIQUE: Ultrasound carotids performed using grayscale, color-flow, and spectral Doppler imaging. COMPARISON: US US BREAST RT LIMITED from 12/30/2021 FINDINGS: CAROTID ARTERIES: There is no significant plaque in the common carotid arteries. There is some plaque at the carotid bifurcations and proximal internal carotid arteries, mild on the right side and without elevated velocities. Slightly more prominent plaque on the left side but with maximum peak systolic velocity 109 cm/sec. No elevated velocities. VERTEBRAL ARTERIES: Both patent and exhibit antegrade flow. Measurements: R Bulb: 63.5cm/s PS / 15.6cm/s ED R CCA: 97cm/s PS / 25.8cm/s ED R ECA: 86cm/s PS / 6.2cm/s ED R ICA Prox: 75.4cm/s PS / 17.9cm/s ED R ICA Mid: 73.7cm/s PS / 24.9cm/s ED R ICA Distal: 77.2cm/s PS /24cm/s ED R Vert: 118cm/s PS / 27.3cm/s ED R SVR: 0.8 R DVR: 0.9 L Bulb: 83cm/s PS / 20.7cm/s ED L CCA: 78.5cm/s PS / 23.1cm/s ED L ECA: 73.1cm/s PS / 20.7cm/s ED L ICA Prox: 92.3cm/s PS / 31.3cm/s ED L ICA Mid: 108.6cm/s PS / 29.8cm/s ED L ICA Distal: 102.4cm/s PS / 35.8cm/s ED L Vert: 61cm/s PS / 14.9cm/s ED L SVR: 1.4 L DVR: 1.3 IMPRESSION: There is some mild plaque seen bilaterally at the carotid bulbs and proximal ICAs but no elevated velocities implying stenosis less than 50 percent bilaterally. Antegrade flow is demonstrated in both vertebral arteries. Criteria for Carotid Stenosis: Normal: ICA PSV <125 cm/s no plaque or intimal thickening is visible. <50% stenosis: ICA PSV <125 cm/s and plaque or intimal thickening is visible. 50-69% stenosis: ICA PSV is 125-250 cm/s and plaque is visible. >70% stenosis to near occlusion: ICA PSV >250 cm/s with visible plaque and luminal narrowing. DATA REPOSITORY:
--- NOTE | 2024-09-25 | DI.MRI_ITS ---
Exam(s) MR BRAIN WO EXAM: MR BRAIN WO CLINICAL HISTORY: tia vs cva TECHNIQUE: Multiplanar multisequence MRI of the brain was performed. COMPARISON: MR MR BRAIN WO from 12/16/[address] HEAD WO from 09/22/2024 FINDINGS: CEREBRAL PARENCHYMA: There is no evidence of intracranial hemorrhage, mass effect, or shift of midline structures. There are no extra-axial fluid collections. Ventricles are not enlarged or shifted. There is no significant focal signal abnormality in the cerebellar hemispheres nor within the ariela, midbrain, and thalami. There are multiple small foci of periventricular signal abnormality which are not associated with hemorrhage, surrounding edema, nor restricted diffusion. Most probably related to chronic ischemic changes. There is no significant focal signal abnormality evident on diffusion imaging to suggest acute ischemic event. Tiny midline lipoma noted, not clinically significant. PITUITARY GLAND: No mass nor parasellar abnormality. No obvious abnormality in the cavernous sinuses. FLOW VOIDS: The expected flow void are noted. No evidence of obvious aneurysm nor obvious vascular malformation. PARANASAL SINUSES: Paranasal sinuses are clear but there is fluid in the left mastoid air cells. This was not evident on CT scan of 3 days ago. ORBITS: No obvious findings. IMPRESSION: No significant acute intracranial findings. Chronic white matter ischemic changes. No areas of restricted diffusion to suggest acute or subacute infarct. Small amount of fluid is noted in the left mastoid air cells. This is more evident on the MRI than on the recent CT scan of 3 days ago. DATA REPOSITORY:
[2024-09-25 01:59] VITALS: BP 114/68; PULSE 65; RESP 18; TEMP 36.8; O2SAT 96
[2024-09-25 05:16] VITALS: BP 124/68; PULSE 63; RESP 22; TEMP 36.6; O2SAT 96
[2024-09-25 07:55] VITALS: BP 134/63; PULSE 66; RESP 16; TEMP 37; O2SAT 98
--- NOTE | 2024-09-25 10:52 | PT.INTREAT ---
PT Notes Visit Reasons: cva Inpatient Physical Therapy Treatment Note [facility] Date: 09/25/2024 PRECAUTIONS: N/A SUBJECTIVE: Pt states she is going home today after her test. OBJECTIVE: seated at EOB visiting. requested to brush her teeth and use the bathroom before walking.? PAIN: No pain noted VITALS: monitored by nursing Therapeutic Activities ([id number]): Direct one-on-one instruction in dynamic activities to improve functional performance. ? BED MOBILITY/TRANSFERS? Rolling L/R: independent Supine-sit: independent? Sit-supine: independent ? Sit-stand: independent ? Stand-sit: independent? Bed-Chair: SBA ? Chair-bed: SBA -Provided skilled cues and instruction on performance and technique throughout. AMBULATION ?-Able to ambulate 300 ft w/o AD and SBA - Slight Trendelenburg observed during stance phase of RLE likely due to R DEN -Ascends/descends a set of 4 stairs w/bilat UE support on railings ? ASSESSMENT:? Pt with no sway in ambulation during this session. She has slight drift to the left when walking long straight hallway. Able to avoid obstacles. Pt recommended to use FWW for community distances and at night at home. This increases her risk of falling but again this is likely her baseline. Her is home with her and able to assist her as needed. She may benefit from outpatient PT services for her baseline weaknesses and balance issues. PLAN:D/C to home TREATMENT CODE/TIME:[id number]/ [id number] DISCHARGE RECOMMENDATION: D/c to home with an outpatient PT referral
--- NOTE | 2024-09-25 10:58 | PDOC.CMDIS ---
Date of service: 09/25/24 Time of Service: 13:42 LACE Index Scoring Tool Questions: Length of Stay (in days): 3 Was the patient admitted via the E.D.?: Yes Comorbidities: Liver or Renal Disease E.D. Visits: 1 Answers: Total Score: 12 Risk of Readmission: High Risk Care Management Discharge Plan Reason for Hospitalization: CVA Discharge Plan: Dorothy will be discharged home with new orders for outpatient PT. She will follow up with her community providers and discharge plan of care. She will transport with her . Patient/Family Education Needs: Review discharge instructions, activity, limitations, and plan of care. Discuss Ask Me Three. Services Needed at Discharge: Outpatient Therapy
[2024-09-25] MEDS: Aspirin E.C. 81 MG TABEC PO (11:26)
[2024-09-25] MEDS: Multivitamin TAB 1 TAB PO (11:26)
[2024-09-25] MEDS: Bisoprolol 5 MG TAB PO (11:26)
[2024-09-25] MEDS: Atorvastatin 40 MG TAB 80 MG PO (11:26)
[2024-09-25] MEDS: Normal Saline Flush 10 ML SYR IVP ×2 (11:26→13:09)
[2024-09-25] MEDS: Memantine 5 MG TAB 10 MG PO (11:27)
[2024-09-25] MEDS: Omeprazole 20 MG CAPCR PO (11:27)
[2024-09-25] MEDS: Calcium Carbonate 1.5 GM TAB PO (11:27)
[2024-09-25] MEDS: lamoTRIgine 100 MG TAB PO (11:27)
[2024-09-25 11:39] VITALS: BP 129/66; PULSE 60; TEMP 36.7; O2SAT 95
[2024-09-25] MEDS: cefTRIAXone 1 GM/50 ML BAG IVPB (13:09)
--- NOTE | 2024-09-25 14:19 | DSE_ITS ---
Date of service: 09/25/24 Time of Service: 14:19 DS: Diagnosis Discharge Diagnosis (1) CVA (cerebral vascular accident): Status: Chronic (2) Coronary artery disease, non-occlusive: Status: Chronic (3) Elevated MCV: Status: Acute (4) Elevated TSH: Status: Acute (5) Elevated troponin: Status: Acute (6) UTI (urinary tract infection): Status: Acute (7) Hypertension: Status: Chronic (8) Epilepsy: Status: Acute (9) Dyslipidemia: Status: Acute (10) GERD (gastroesophageal reflux disease): Status: Chronic Discharge Plan Disposition Patient Disposition: Home Condition: Improving Discharge Details Reason For Visit: cva Admit Date/Time: 09/22/24 20:05 Admit Provider: Rodney Bean Attending Provider: Rodney Bean [facility] Course: This 74-year-old female patient with a past medical history of coronary artery disease with cardiac stenting 2011, seizures, GERD, chronic kidney disease, hypertension, high cholesterol, presented to the ED on 09/22/24 for evaluation of left-sided weakness at 17:00.On arrival at 19:55 the weakness and the tingling in her arms and legs had completely resolved,with only very mild residual weakness in her left lower extremity remaining. EKG showed SR HR 64 w/o signs of coronary occlusion .Head CT was negative for acute findings. UA showed UTI and was initially treated ceftriaxone IV. MRI completed on 09/25/24 with findings of Chronic white matter ischemic changes was negative for acute findings except for left sided mastoid cells small fluid collection w/o clinical sign of redness or inflammation on exam - not apparent on CT from admission. ENT referral completed. Urine grew Klebsiella and based on sensitivity results the patient was discharged on cefpodoxime. Echocardiogram w bubble study official report still pending, but no right to left shunt and no LV reduced function seen upon reviewing the images . The patient remained hemodynamically stable w/o further return of symptoms and will be discharged home with outpatient PT and ENT referrals. Please, follow up with your PCP within 7-10 days of discharge. Recommendations for PCP follow-up: Neurology referral ENT referral entered - please follow-up Please f/u on echocardiogram official report Discussed with Dr. Martinez Recommendations for Follow Up Recommended tests to be ordered by follow up provider: Needs a neurology referral Home Meds and New Rx's Prescriptions: New clopidogrel 75 mg tablet 75 mg PO DAILY Qty: 18 0RF cefpodoxime 200 mg tablet 200 mg PO Q12H Qty: 4 0RF Rx Instructions: must administer with a meal/food Continued multivitamin [Daily Multi-Vitamin] tablet 1 tab PO DAILY calcium carbonate [Calcium 600] 600 mg calcium (1,500 mg) tablet 600 mg PO DAILY aspirin 81 mg tablet,delayed release (DR/EC) 81 mg PO DAILY lamotrigine 100 mg tablet 100 mg PO BID Qty: 180 3RF bisoprolol fumarate 5 mg tablet 5 mg PO DAILY Qty: 90 3RF atorvastatin [Lipitor] 40 mg tablet 40 mg PO DAILY Qty: 90 3RF alendronate [Fosamax] 70 mg tablet 70 mg PO QWEEK Qty: 15 3RF Patient Comments: takes on wednesday mornings Rx Instructions: Take 1 tablet once a week with water 30-60min before other meds or food, stay upright for >30 min after omeprazole 20 mg capsule,delayed release(DR/EC) 20 mg PO DAILY Qty: 90 5RF No Action memantine 10 mg tablet 10 mg PO BID Qty: 180 3RF Discharge Instructions Stand Alone Forms: Nursing Discharge Form Referrals: [facility] [Other] Referral Note: OPT referral for physical therapy with Leyla ROBERTO [phone] Lorelei Ferguson NP [Primary Care Provider, Medicine] Referral Note: The office will be calling with an appointment within 7 days. They have all your information. Zachariah Villalobos MD [ [facility] STAFF PHYSICIAN, ENT Surgical] - 09/27/24 2:30 pm Referral Note: Fluid is noted in the left mastoid air cells on CT Activity:: Activity as Tolerated Equipment/Supplies:: Walker Diet:: heart healthy DS: Summary Time Spent with Patient providing and/or coordinating discharge services: Greater than 30 minutes Status at Discharge Functional status at discharge: independent ambulation Overall status at discharge: patient is not back to baseline Mental Status: mental status grossly normal Speech and Movement: speech and movement normal Mood: congruent mood Affect: normal affect Exam Narrative Exam Narrative: No acute distress, neurologically intact , alert & oriented X3 w/o focal deficits, facial structures intact, no left mastoid tenderness, redness or swelling, neck with full range of motion cardiovascular regular rate and rhythm, S1, S2 no mumur, respirations even and unlabored, clear lungs, abdomen is non-distended, round soft nontender, moves all extremities equally strength bilaterally 5 out of 5psychiatric appropriate mood and affect Psych Mental Status: mental status grossly normal Speech and Movement: speech and movement normal Mood: congruent mood Affect: normal affect DS: Data Vitals/I&O Vitals and I&O: Vital Signs Temperature 36.7 C 09/25/24 11:39 Temperature Source Temporal Artery Scan 09/25/24 11:39 Pulse 60 09/25/24 11:39 Pulse Rhythm Regular 09/22/24 21:59 Pulse 66 09/22/24 21:20 Respiratory Rate 16 09/25/24 07:55 Respiratory Effort Non-Labored 09/22/24 21:59 Respiratory Depth Normal 09/22/24 21:59 Respiratory Pattern Normal 09/22/24 21:59 Blood Pressure 129/66 09/25/24 11:39 Blood Pressure Mean 87 09/25/24 11:39 Pulse Oximetry 95 09/25/24 11:39 Oxygen Delivery Method Room Air 09/25/24 11:39 Oxygen Flow Rate 0 09/25/24 11:39 Fraction of Inspired Oxygen (FIO2) 21 09/23/24 21:55 Pain Level 0 09/25/24 05:16 Comment nurse requested pt be left alone to sleep, will take when pt wakes up 09/24/24 23:44 Intake & Output 09/24/24 09/25/24 09/25/24 23:59 11:59 23:59 Intake Total 170 / 580 240 / 240 Output Total 1400 / 2150 800 / 1200 400 / 1200 Balance -1230 / -1570 -560 / -960 -400 / -960 Intake: IV 50 / 60 Oral 120 / 520 240 / 240 Output: Urine 1400 / 2150 800 / 1200 400 / 1200 Other: Urine Color Pale Yellow Yellow Yellow Urine Appearance Clear Clear Clear Urine Odor Normal Normal Comment 200 already in hat when pt voided. patient voided another 200. PFSH All Active Problems (Updated 09/22/24 @ 20:49 by Rodney Bean MD) GERD (gastroesophageal reflux disease) (Chronic) Dyslipidemia (Acute) Epilepsy (Acute) Hypertension (Chronic) UTI (urinary tract infection) (Acute) Elevated troponin (Acute) Elevated TSH (Acute) Elevated MCV (Acute) CVA (cerebral vascular accident) (Chronic) Acute UTI (Acute) Brain TIA (Acute) Coronary artery disease, non-occlusive (Chronic) Atretic LAD. 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) Memory loss (Chronic) GERD (gastroesophageal reflux disease) (Chronic) Hyperlipidemia (Chronic) Osteoporosis (Chronic) Alendronate started 10/2019, DEXA 10/2019 Chronic suppurative otitis media of left ear (Chronic) Chronic eczematoid otitis externa of both ears (Chronic) Chronic bacterial otitis externa of left ear (Chronic) Sensorineural hearing loss, bilateral (Chronic) 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) Atopic dermatitis (Chronic) Allergic rhinitis (Chronic) Medical History Depressive disorder Prediabetes NSTEMI (non-ST elevated myocardial infarction) (~2011) Former cigarette smoker 23pack-yr hx 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 (~09/2017) To left lateral thigh Tubular adenoma of colon (~07/18/21) Migraine headache without aura (02/01/15) Non-ischemic cardiomyopathy Surgical History History of colonoscopy with polypectomy (07/18/21) [place] of left [place]ide[place] [facility] [place] of tonsillectomy and adenoidectomy History of arthroplasty of right shoulder History of revision of total replacement of right hip joint (01/03/16) S/P appendectomy S/P colonoscopy (07/18/21) 11/18/15 07/18/21 [place] S/P left oophorectomy (~1988) S/P laparoscopic hysterectomy (~1988) S/P right oophorectomy (~1969) Status post total hip replacement, 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 Brother Hypertension Heart attack Brother Hypertension Type 2 diabetes mellitus Brother No problems noted. Son Epilepsy Son No problems noted. Son No problems noted. Son No problems noted. Daughter No problems noted. Maternal Grandfather No problems noted. Maternal Grandmother No problems noted. Paternal Grandfather No problems noted. Paternal Grandmother No problems noted. Social History Smoking/Tobacco Use Status: Never Smoking risk assessment performed?: Yes Alcohol Intake: never Drug use: Never Substance use type: does not use Adopted: No Household members: spouse Housing: house current occupation: HOUSEWIFE Pets and animals: No What is your relationship status?: How often do you talk on the phone with friends or family?: never Panel score (0-1 are the most socially isolated patients): 1 Seatbelt use: always Drive intox or ride w/intox school bus driver/teacher assistant: No Do you feel safe at home: Yes Do you feel safe in your relationship?: Yes Female Reproductive History Menstrual Menopause type: surgical History History 5 Para 5 Hx # Term Pregnancies Multiple births Hx # Pregnancies Ectopic pregnancies AB induced Hx Number of Living Children 5 AB spontaneous Time Spent with Patient Time Spent with Patient: 70-84 minutes4 Time was spent: preparing to see the patient(eg.review tests), obtaining and/or reviewing separately otained hiistory, ordering medications,tests, procedures, referring, communicating with other health customer care voice consultant, indepentently interpreting results, counseling the patient and care coordination
[2024-09-25 15:12] VITALS: BP 118/60; PULSE 66; RESP 16; TEMP 36.4; O2SAT 96
[2024-09-25] MEDS: metroNIDAZOLE 500 MG TAB PO (15:28)
== END 2024-09-25 16:08 | disposition home or self-care (01) ==
LOC: ER 20:38 → MS 09-23 07:59
PROVIDERS: Nurse Practitioner Acute Care; Admitting Provider Hospitalist; Emergency Provider Student in an Organized Health Care Education/Training Program; PCP Nurse Practitioner Family; Responsible Provider Nurse Practitioner Acute Care; Visit Provider Hospitalist
DX: I63.9 Cerebral infarction, unspecified (principal); G81.94 Hemiplegia, unspecified affecting left nondominant side; N39.0 Urinary tract infection, site not specified; I25.10 Atherosclerotic heart disease of native coronary artery without angina pectoris; R74.8 Abnormal levels of other serum enzymes; G40.909 Epilepsy, unspecified, not intractable, without status epilepticus; E78.5 Hyperlipidemia, unspecified; K21.9 Gastro-esophageal reflux disease without esophagitis; R79.89 Other specified abnormal findings of blood chemistry; Z95.5 Presence of coronary angioplasty implant and graft; I12.9 Hypertensive chronic kidney disease with stage 1 through stage 4 chronic kidney disease, or unspecified chronic kidney disease; B96.1 Klebsiella pneumoniae [K. pneumoniae] as the cause of diseases classified elsewhere; R60.0 Localized edema; G47.33 Obstructive sleep apnea (adult) (pediatric); N18.30 Chronic kidney disease, stage 3 unspecified; M81.0 Age-related osteoporosis without current pathological fracture; Z86.73 Personal history of transient ischemic attack (TIA), and cerebral infarction without residual deficits; H90.3 Sensorineural hearing loss, bilateral; R41.3 Other amnesia; R94.6 Abnormal results of thyroid function studies
CPT/HCPCS: 00123; 36415; 80053; 80061; 80175; 82805; 87077; 93005; 96365; 96366; 96372; 97161; 97530; 99291; J1650; 70450; 70551; 81003; 81015; 82607; 82746; 83036; 83540; 83550; 84439; 84443; 84484; 85025; 85610; 85730; 87086; 87186; 93010; 93306; 93880; 99223; 99232; 99233; 99239; G0378; J0696

== ENCOUNTER → 2024-10-04 09:53 | Outpatient (BNVA) | payer MEDICARE, SELFPAY | PROVIDERS: PCP Nurse Practitioner Family; Visit Provider Psychiatry & Neurology Neurology | DX: G40.309 Generalized idiopathic epilepsy and epileptic syndromes, not intractable, without status epilepticus (principal); R41.3 Other amnesia; G45.9 Transient cerebral ischemic attack, unspecified; I12.9 Hypertensive chronic kidney disease with stage 1 through stage 4 chronic kidney disease, or unspecified chronic kidney disease; N18.9 Chronic kidney disease, unspecified | CPT/HCPCS: 99214 ==

== ENCOUNTER 2024-10-09 13:29 | Outpatient (CLI) | payer MEDICARE, SELFPAY | END 2024-10-09 13:30 | disposition home or self-care (01) | PROVIDERS: PCP Nurse Practitioner Family; Referring Provider Psychiatry & Neurology Neurology; Visit Provider Psychiatry & Neurology Neurology | DX: G45.9 Transient cerebral ischemic attack, unspecified (principal) | CPT/HCPCS: 93246 ==

== ENCOUNTER 2024-10-31 06:55 | Outpatient (CLI) | payer SELFPAY ==
--- NOTE | 2024-10-31 09:37 | W.CARDEVENT ---
Date of service: 10/31/24 Time of Service: 09:38 Cardiac Event Recorder Referring Provider:: Priyanka Huff Indications:: TIA Cardiac Event Note: This is a cardiac event monitor. Patient was monitored for 13 days and 22 hours Rhythm throughout was sinus with an average heart rate of 64. Minimum was 44, maximum 120 There were occasional ventricular ectopic beats There were rare atrial premature beats. There were very rare supraventricular triplets There was no atrial fibrillation, no high-grade AV block, no pauses greater than 3 seconds. No symptoms were reported
== END 2024-10-31 06:56 | disposition home or self-care (01) ==
LOC: CARDOPNVT 06:55
PROVIDERS: PCP Nurse Practitioner Family; Visit Provider Internal Medicine Cardiovascular Disease
DX: G45.9 Transient cerebral ischemic attack, unspecified (principal)
CPT/HCPCS: 93248

== ENCOUNTER 2024-12-29 15:01 | Outpatient (CLI) | payer MEDICARE, SELFPAY ==
[2024-12-29 16:14] LABS: HCT 39.8 % (36.0-46.0); HGB 12.8 g/dL (11.2-15.7); MCH 31.2 pg (27.0-33.0); MCHC 32.2 % (32.0-36.0); MCV 97 fL (80-95); MPV 10.6 fL (8.0-11.0); Platelet Count 135 10^3/uL (130-400); RBC 4.10 10^6/uL (3.93-5.22); RDW 13.0 % (11.7-14.6); RDW-SD 46.1 fL; WBC 6.10 10^3/uL (4.4-10.8)
[2024-12-29 16:37] LABS: ALT 23 U/L (14-59); AST 23 U/L (15-37); Albumin 3.6 g/dL (3.4-5.0); Alkaline Phosphatase 112 U/L (46-116); Anion Gap 9.5 mmol/L (3-11); BUN 16 mg/dL (7-18); Bilirubin, Total 0.5 mg/dL (0.2-1.0); CO2 26.5 mmol/L (21.0-32.0); Calcium 9.5 mg/dL (8.5-10.1); Chloride 109 mmol/L (98-107); Estimated GFR 47.50 (mL/min/1.73m2); Glucose 106 mg/dL (74-106); Potassium 4.3 mmol/L (3.5-5.1); Sodium 145 mmol/L (136-145); TSH (W/Ref FT4) 4.63 uIU/mL (0.36-3.74); Total Protein 7.2 g/dL (6.4-8.2); Uric Acid 5.2 mg/dL (2.6-6.0)
[2024-12-29 17:19] LABS: Ferritin 57 ng/mL (8-252); Vitamin B12 365 pg/mL (193-986); Vitamin D 25 Total 40 ng/mL (30-100)
[2024-12-29 17:55] LABS: Iron 55 ug/dL (50-170); Total Iron Binding Capacity 262 ug/dL (250-450)
[2025-01-01 15:16] LABS: Albumin 57.1 % (55.8-66.1); Albumin g/dL 3.8 g/dL (3.6-5.2); Alpha 1 g/dL 0.30 g/dL (0.15-0.40); Alpha 2 g/dL 0.80 g/dL (0.50-1.00); Beta g/dL 0.90 g/dL (0.60-1.20); Gamma g/dL 0.80 g/dL (0.60-1.60); Total Protein 6.7 g/dL (6.3-8.2)
[2025-01-01 17:13] LABS: Cystatin C, S 1.32 mg/L
== END 2024-12-29 15:02 | disposition home or self-care (01) ==
LOC: LOS 15:01
PROVIDERS: PCP Nurse Practitioner Family; Visit Provider Nurse Practitioner Family
DX: N18.30 Chronic kidney disease, stage 3 unspecified (principal); K21.9 Gastro-esophageal reflux disease without esophagitis; R79.89 Other specified abnormal findings of blood chemistry
CPT/HCPCS: 36415; 80053; 82306; 82610; 85027; 82607; 82728; 83540; 83550; 83970; 84100; 84165; 84439; 84443; 84550

== ENCOUNTER 2024-12-29 16:27 | Outpatient (REF) | payer MEDICARE, SELFPAY ==
[2024-12-29 17:42] LABS: Glucose Negative (Negative)
[2024-12-29 17:51] LABS: RBC 20-50 HPF (0-2); WBC 20-50 HPF (0-5)
[2024-12-29 18:08] LABS: PROTEIN 12.0 mg/dL; Prot/Crea Ur Ratio 0.10
[2024-12-29 18:12] LABS: COMMENT (LAB VIEW ONLY) 114.39 mg/dL; Microalb ug/mg Crea 14.9 ug/mg Cr
== END 2024-12-29 16:28 | disposition home or self-care (01) ==
LOC: LBN 16:27
PROVIDERS: PCP Nurse Practitioner Family; Visit Provider Nurse Practitioner Family
DX: N18.30 Chronic kidney disease, stage 3 unspecified (principal)
CPT/HCPCS: 81003; 81015; 82043; 82565; 82570; 84156

== ENCOUNTER 2025-01-10 01:19 | Outpatient (CLI) | payer MEDICARE, SELFPAY ==
--- NOTE | 2025-01-10 07:00 | DI.DEXA_ITS ---
Exam(s) XR DEXA BONE DENSITY W/WO FARSHAD EXAM: XR DEXA BONE DENSITY W/WO FARSHAD CLINICAL HISTORY: osteoporosis re-evalUATION,POSTMENOPAUSAL STATUS,Z78.0 TECHNIQUE: COMPARISON: CR XR DEXA BONE DENSITY W/WO FARSHAD from 12/30/2021 FINDINGS: Lateral Spine Image: Unremarkable. No compression deformities identified. Left hip: Total T-Score: -1.6. This is unchanged compared to the prior examination. Total Z-Score: 0.2 T- and Z-scores: There is osteoporosis seen in the femoral neck with a T-score of -3.3. This has significantly changed compared to the prior examination. Lumbar Spine: Total T-Score: -1.6. This compares to -1.3 on the prior examination. Total Z-Score: 0.8 T- and Z-scores: Findings are consistent with osteopenia. IMPRESSION: There is osteoporosis now seen in the left femoral neck.
== END 2025-01-10 01:39 ==
LOC: DI 01:19
PROVIDERS: PCP Nurse Practitioner Family; Visit Provider Nurse Practitioner Family
DX: M81.0 Age-related osteoporosis without current pathological fracture (principal); Z78.0 Asymptomatic menopausal state
CPT/HCPCS: 77080

== ENCOUNTER → 2025-01-23 00:46 | Outpatient (CLI) | payer MEDICARE, SELFPAY ==
--- NOTE | 2025-01-23 07:10 | DI.US_ITS ---
Exam(s) US RENAL EXAM: US RENAL CLINICAL HISTORY: chronic kidney disease,n18.30. TECHNIQUE: Santos scale, color and spectral Doppler were used. COMPARISON: US RENAL ULTRASOUND(P) from 08/21/2015 FINDINGS: Examination is limited by patient body habitus. Renal size in cm: Right: 10.4. Left: 9.1. Echogenicity: There is bilateral renal cortical atrophy. Hydronephrosis: No. Cyst or mass: There is an anechoic 1.8 x 1.8 cm region in the right renal pelvis. This may represent a parapelvic cyst or possible prominent extrarenal pelvis. Nephrolithiasis: There is an echogenic focus seen within in the upper pole of the kidney which may represent a nonobstructing stone. Other findings: None. Bladder:Normal. Ureteral jets: Right: Not visualized on this examination. Left: Not visualized on this examination. Prevoid vol:365 cc Postvoid vol:0 cc Renal color flow: Symmetric and within normal limits. IMPRESSION: 1. The examination is limited by the patient body habitus. 2. Bilateral renal cortical atrophy. 3. Parapelvic cyst versus prominent extrarenal pelvis on the right. DATA REPOSITORY:
--- NOTE | 2025-01-23 08:26 | DI.MAMMO_ITS ---
Exam(s) MAMMO SCREENING EXAM: MAMMO SCREENING CLINICAL HISTORY: screening,z12.39 TECHNIQUE: Bilateral full field digital CC and MLO mammographic images were obtained with 3D tomosynthesis and utilizing computer aided detection (CAD). COMPARISON: Comparison is made with prior examinations. FINDINGS: Masses/Architectural Distortion: No suspicious masses or areas of architectural distortion are present. The biopsy clip in the left breast appears stable. Microcalcifications: No suspicious pleomorphic-type are seen. There are benign- type calcifications scattered in both breasts. Skin Thickening/Nipple Retraction: None. IMPRESSION: 1. No significant interval change with no specific features of malignancy noted. 2. Unless there is more urgent need, screening mammography is recommended, as per [place] [employer] guidelines. BI-RADS Category 2 - Benign Findings Breast Density - Category A - The breast are almost entirely fatty. Breast density Category C or D implies that the patient has dense breast tissue. Dense breast tissue can make it harder to find cancer on a mammogram. Dense breast tissue is also associated with an increased risk of breast cancer. This information about the result of the mammogram report was provided to the patient to raise their awareness. Use this report when you speak with the patient about their risks for breast cancer, which includes their family history. At that time, you may recommend additional screening tests (Ultrasound or MRI) as these tests may add significant information. A negative radiographic report should not delay biopsy if a dominant or clinically suspicious mass is present. Up to ten percent of cancers are not identified on mammography. A negative report may reinforce clinical impression. Adenosis and dense breasts may obscure an underlying neoplasm. False positive reports average 6 to 10%. Patient will receive a letter notifying them of these results.
== END ==
LOC: DI 00:46
PROVIDERS: PCP Nurse Practitioner Family; Visit Provider Nurse Practitioner Family
DX: N18.30 Chronic kidney disease, stage 3 unspecified (principal); Z12.31 Encounter for screening mammogram for malignant neoplasm of breast
CPT/HCPCS: 76770; 77063; 77067

== ENCOUNTER 2025-02-02 08:17 | Outpatient (CLI) | payer MEDICARE, SELFPAY ==
[2025-02-02 14:50] LABS: Anion Gap 8.5 mmol/L (3-11); BUN 15 mg/dL (9-23); CO2 28.5 mmol/L (20.0-31.0); Calcium 9.5 mg/dL (8.3-10.6); Chloride 110 mmol/L (98-107); Glucose 99 mg/dL (74-106); Potassium 4.6 mmol/L (3.5-5.1); Sodium 147 mmol/L (136-145)
[2025-02-02 14:53] LABS: TSH (W/Ref FT4) 5.46 uIU/mL (0.55-4.78)
== END 2025-02-02 08:18 | disposition home or self-care (01) ==
PROVIDERS: PCP Nurse Practitioner Family; Visit Provider Nurse Practitioner Family
DX: I10 Essential (primary) hypertension (principal); E03.8 Other specified hypothyroidism; R79.89 Other specified abnormal findings of blood chemistry
CPT/HCPCS: 36415; 80048; 84439; 84443